=== PATIENT | male | born 1950 | race Caucasian/White ===

== ENCOUNTER → 2017-06-18 | Outpatient (CLI) | payer BC ==
[~2017-06-18] MED LIST: ACYC-57 PO; AMLO-114 PO; ASPEC81 PO; ATOR-26 PO; HYDR-5688 PO; HYG25 PO; MCRK20 PO; METO50TA16 PO; MORP15TA19 PO; TERA1CAP63 PO
--- NOTE | 2017-06-18 12:14 | DIAGNOSTIC IMAGING REPORT ---
L-SPINE MIN 4 VIEWS ROUTINE, SI JOINTS 3 OR MORE VIEWS HISTORY: 67 years-old Male LUMBER SPINE STENOSIS,SACROILITIS,ARTHRITIS, LAB 1 chronic low back and sacral pain COMPARISON: CT abdomen and pelvis 03/11/2016 TECHNIQUE: 5 views of the lumbar spine with 3 views of the SI joints FINDINGS: LUMBAR SPINE: 5 nonrib-bearing lumbar type vertebral segments. Severe multilevel intervertebral disc space narrowing is redemonstrated, most pronounced at 2-L3 and L5-S1. Severe facet arthrosis at L4-L5 and L5-S1. Moderate multilevel endplate spurring. Large anterior bridging osteophyte redemonstrated at T10-T11. 4 mm retrolisthesis L2 on L3 is unchanged, likely secondary to long-standing facet disease. Atherosclerosis of the aorta. SI JOINTS: There are mild degenerative changes about the bilateral SI joints without evidence of acute fracture. No erosive changes to suggest erosive sacroiliitis. Phleboliths noted within the right hemipelvis. Moderate degenerative changes about the bilateral femoral acetabular joints. IMPRESSION: 1. No acute fracture or subluxation. 2. Multilevel degenerative changes as detailed above without significant change from comparison. The above report was generated using voice recognition software. It may contain grammatical, syntax or spelling errors. Electronically signed by: Bull Sepulveda M.D. 06/18/2017 12:13 PM Dictated Date/Time: 06/18/2017 12:08 PM
[2017-06-18 12:22] LABS: BASO % 0.5 %; BASO ABS # 0.04 K/uL (0-0.2); EOS % 1.8 %; EOS ABS # 0.14 K/uL (0-0.5); HEMATOCRIT 50.5 % (42-52); HEMOGLOBIN 18.1 g/dL (14.0-18.0); IG# 0.07 K/uL (0.00-0.02); LYMPH % 33.9 %; MEAN CELL VOLUME 91.2 fL (80-100); MEAN CORPUSCULAR HEMOGLOBIN 32.7 pg (25-34); MEAN CORPUSCULAR HGB CONC 35.8 g/dl (32-36); MEAN PLATELET VOLUME 9.6 fL (7.4-10.4); MONO ABS # 0.84 K/uL (0.11-0.59); NEUT % 51.9 %; NEUT ABS # 3.97 K/uL (1.4-6.5); PLATELET COUNT 229 K/uL (130-400); RED CELL DISTRIBUTION WIDTH CV 13.6 % (11.5-14.5); RED CELL DISTRIBUTION WIDTH SD 45.2 fL (36.4-46.3); WHITE BLOOD COUNT 7.66 K/uL (4.8-10.8)
[2017-06-18 12:28] LABS: ALT/SGPT 49 U/L (12-78); AST/SGOT 32 U/L (15-37); BLOOD UREA NITROGEN 21 mg/dl (7-18); CALCIUM 9.3 mg/dl (8.5-10.1); CARBON DIOXIDE 31 mmol/L (21-32); CREATININE 1.12 mg/dl (0.60-1.40); GLUCOSE 105 mg/dl (70-99); POTASSIUM 3.1 mmol/L (3.5-5.1); SODIUM 136 mmol/L (136-145)
== END | disposition home or self-care (01) ==
LOC: C.RAD 11:13
DX: M48.061 Spinal stenosis, lumbar region without neurogenic claudication (principal); M46.1 Sacroiliitis, not elsewhere classified; M19.90 Unspecified osteoarthritis, unspecified site; M54.5 Low back pain; M47.816 Spondylosis without myelopathy or radiculopathy, lumbar region

== ENCOUNTER → 2017-07-02 | Outpatient (CLI) | payer BC ==
[2017-07-02 13:23] LABS: HEMATOCRIT 48.6 % (42-52); MEAN CELL VOLUME 93.6 fL (80-100); MEAN CORPUSCULAR HEMOGLOBIN 32.8 pg (25-34); MEAN PLATELET VOLUME 9.7 fL (7.4-10.4); PLATELET COUNT 236 K/uL (130-400); RED CELL DISTRIBUTION WIDTH CV 14.3 % (11.5-14.5); RED CELL DISTRIBUTION WIDTH SD 48.6 fL (36.4-46.3); WHITE BLOOD COUNT 7.51 K/uL (4.8-10.8)
== END | disposition home or self-care (01) ==
LOC: C.LAB 12:44
DX: R79.89 Other specified abnormal findings of blood chemistry (principal)

== ENCOUNTER → 2017-07-18 | Outpatient (CLI) | payer BC ==
[~2017-07-18] MED LIST changes: +CHOL20007 PO; +DOCU-94 PO; +HYDR-3983 PO; +HYDR200T5 PO; +IBUP-1428 PO; +PREG1CAP28 PO
--- NOTE | 2017-07-18 17:34 | DIAGNOSTIC IMAGING REPORT ---
BONE SCAN WHOLE BODY CLINICAL HISTORY: 67 years-old Male presenting with MIKE LESION RT ILIAC Bone, abn MRI, SI JOINT PAIN. TECHNIQUE: Planar anterior and posterior imaging of the whole body was performed 3 hours following the intravenous administration of 26.3 mCi Tc-99m MDP. COMPARISON: Plain radiographs of the sacroiliac joints from 06/18/2017. FINDINGS: Focal radiotracer activity evident at the knees, likely localizing to the patellae. Photopenia in the region of the knees suggest bilateral total knee arthroplasty. Focal radiotracer uptake also evident at the left ankle, most consistent with degenerative change. Degenerative related radiotracer activity also evident bilaterally in the midfoot. Mild scoliotic curvature of the thoracic spine with multilevel mild rotatory tracer avidity in the spine likely related to degenerative change. No additional sites of radiotracer uptake. Specifically, no activity is evident in the right iliac bone. Expected radiotracer uptake in the genitourinary system. IMPRESSION: 1. No lesion evident in the right ilium. 2. Multifocal degenerative related radiotracer uptake in the spine, left ankle, and mid feet. 3. Post surgical changes of bilateral total knee arthroplasties. Focal radiotracer uptake at the knees likely localizes to the patellae and may represent expected postsurgical changes of patellar resurfacing. Electronically signed by: Alexys Medina M.D. 07/18/2017 5:32 PM Dictated Date/Time: 07/18/2017 5:29 PM
== END | disposition home or self-care (01) ==
LOC: C.NUCL 13:04
DX: M54.5 Low back pain (principal)

== ENCOUNTER 2019-05-01 06:55 | Inpatient (IN) ==
--- NOTE | 2019-03-16 13:38 | PAT Medication Instructions ---
Medication Instructions Date of Service March 16, 2019 Home Medications Multi Vitamin 1 tab PO QAM acyclovir 200 mg PO BID amlodipine 10 mg PO QAM aspirin 81 mg PO QAM atorvastatin 80 mg PO QPM calcium polycarbophil [Fiber Laxative (ca polycarbo)] 1,250 mg PO BID hydrocodone-acetaminophen 2 tab PO QAM ibuprofen 800 mg PO BID PRN metoprolol tartrate 50 mg PO BID morphine 15 mg PO QAM potassium chloride 10 meq PO BID terazosin 10 mg PO HS Cyanobalamin 1 tab PO QAM Testosterone 1 ml INJ UD cholecalciferol (vitamin D3) [Vitamin D3] 2,000 unit PO HS docusate sodium [Stool Softener] 100 mg PO BID folic acid 1 mg PO QAM glucos sul [id number] [Glucosamine Chondroitin] 1 cap PO BID losartan 50 mg PO QAM menthol [Biofreeze (menthol)] 1 applic TOPICAL QID methotrexate sodium 6 mg PO WK sennosides [Senokot] 8.6 mg PO BID Continue as directed Testosterone 1 ml INJ UD ASK your surgeon for instructions ibuprofen 800 mg PO BID PRN ASK your prescriber and surgeon aspirin 81 mg PO QAM methotrexate sodium 6 mg PO WK STOP taking 2 weeks before surgery glucos sul [id number] [Glucosamine Chondroitin] 1 cap PO BID STOP taking 24 hours before surgery menthol [Biofreeze (menthol)] 1 applic TOPICAL QID DO NOT take the morning of surgery Multi Vitamin 1 tab PO QAM calcium polycarbophil [Fiber Laxative (ca polycarbo)] 1,250 mg PO BID potassium chloride 10 meq PO BID Cyanobalamin 1 tab PO QAM docusate sodium [Stool Softener] 100 mg PO BID folic acid 1 mg PO QAM losartan 50 mg PO QAM sennosides [Senokot] 8.6 mg PO BID Take morning of surgery With a small sip of water, OTHERWISE NOTHING TO EAT OR DRINK AFTER MIDNIGHT: acyclovir 200 mg PO BID amlodipine 10 mg PO QAM hydrocodone-acetaminophen 2 tab PO QAM (if needed, may be taken up to four hours before surgery) metoprolol tartrate 50 mg PO BID morphine 15 mg PO QAM (if needed, may be taken up to four hours before surgery) Take evening before surgery acyclovir 200 mg PO BID atorvastatin 80 mg PO QPM calcium polycarbophil [Fiber Laxative (ca polycarbo)] 1,250 mg PO BID metoprolol tartrate 50 mg PO BID potassium chloride 10 meq PO BID terazosin 10 mg PO HS cholecalciferol (vitamin D3) [Vitamin D3] 2,000 unit PO HS docusate sodium [Stool Softener] 100 mg PO BID sennosides [Senokot] 8.6 mg PO BID Other Notes If you have any questions please call us at [phone] or [phone] or [phone] or [phone]
--- NOTE | 2019-03-17 11:04 | Anesthesiology Consultation ---
Date of Service March 17, 2019 Assessment & Plan (1) Encounter for pre-operative examination: Chart Review Chart Review: Acceptable Risk for Surgery (pending surgeon ordered PCP clearance) and Patient seen in Pre Admission Testing Teaching & Discussion Instructed NPO after midnight before surgery, except medications with 15 cc of water. Medication instructions provided according to the PAT guidelines. History Surgery Operation Date: 05/01/19 10:20 Proposed Procedures p Left Total Ankle Replacement, Subtalar Fusion, - Quinton Peters DO s Percutaneous Tendon Achilles Lenghting, Application of Platelet Rich Plasma - Quinton Peters DO Height/Weight Height: 5 ft 11 in Weight: 103.4 kg Allergies Allergy/AdvReac Type Severity Reaction Status Date / Time doxycycline Allergy Unknown Rash Verified 03/10/19 14:11 lisinopril AdvReac Unknown dry cough Verified 03/10/19 14:11 Medications Home Medications Medication Instructions Recorded Confirmed Last Taken Multi Vitamin 1 tab PO QAM 01/30/18 03/10/19 02/23/18 07:00 acyclovir 200 mg PO BID 01/30/18 03/10/19 02/23/18 07:00 amlodipine 10 mg PO QAM 01/30/18 03/10/19 02/23/18 07:00 aspirin 81 mg PO QAM 01/30/18 03/10/19 Unknown atorvastatin 80 mg PO QPM 01/30/18 03/10/19 02/23/18 07:00 calcium polycarbophil [Fiber 1,250 mg PO BID 01/30/18 03/10/19 02/23/18 07:00 Laxative (ca polycarbo)] hydrocodone-acetaminophen 2 tab PO QAM 01/30/18 03/10/19 02/23/18 23:55 ibuprofen 800 mg PO BID PRN 01/30/18 03/10/19 02/23/18 23:55 metoprolol tartrate 50 mg PO BID 01/30/18 03/10/19 02/23/18 07:00 morphine 15 mg PO QAM 01/30/18 03/10/19 02/21/18 07:00 potassium chloride 10 meq PO BID 01/30/18 03/10/19 02/23/18 07:00 terazosin 10 mg PO HS 11/01/18 12/10/19 11/25/18 07:00 Cyanobalamin 1 tab PO QAM 03/10/19 03/10/19 Unknown Testosterone 1 ml INJ UD 03/10/19 03/10/19 Unknown cholecalciferol (vitamin D3) 2,000 unit PO HS 03/10/19 03/10/19 Unknown [Vitamin D3] docusate sodium [Stool Softener] 100 mg PO BID 03/10/19 03/10/19 Unknown folic acid 1 mg PO QAM 03/10/19 03/10/19 Unknown glucos sul [id number] 1 cap PO BID 03/10/19 03/10/19 Unknown [Glucosamine Chondroitin] losartan 50 mg PO QAM 03/10/19 03/10/19 Unknown menthol [Biofreeze (menthol)] 1 applic TOPICAL QID 03/10/19 03/10/19 Unknown methotrexate sodium 6 mg PO WK 03/10/19 03/10/19 Unknown sennosides [Senokot] 8.6 mg PO BID 03/10/19 03/10/19 Unknown Past Medical History Medical History (Updated 03/17/19 @ 14:07 by Solitario Dumont) BPH (benign prostatic hyperplasia) Chronic back pain Diverticulitis 11/2017. S/P SIGMOIDECTOMY. 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 BE[employer] INJURY (MOST RECENT 2014) History of total knee replacement B/L Hx of carpal tunnel repair R/L Hx of tooth extraction S/P laparoscopic-assisted sigmoidectomy FOR DIVERTICULITIS Past Anesthesia History No Hx of Anesthesia Complications and No Family Hx of Anesthesia Complications History of PONV No Hx of PONV and No Hx of Motion Sickness Social History Smoking Status: Never smoker Do You Dip or Chew Tobacco: No Hx Alcohol Use: Yes Alcohol type: beer alcohol intake frequency: a few times a month Hx Substance Use: No Review of Systems Pt denies any recent chest pain, shortness of breath, palpitations, cough, fever or URI. Physical Exam Vital Signs BP: 138/88 P: 74bpm SPO2: 95% RA T: 97.8 F R: 16 ENMT Mouth: + dentures (upper partial) and + dental restorations (few crowns); no chipped teeth and no loose teeth Thyromental Distance: < 3.5 Finger Breadths (3) Mallampati Class: II Neck + short neck and + facial hair (long bushy mustache, pt advised to trim prior to surgery); neck extension not limited Respiratory normal respiratory effort Auscultation: lungs clear to auscultation bilaterally Cardiovascular Rate/Rhythm: regular rate and regular rhythm Heart Sounds: no murmur Vessels: no carotid bruit Extremities: no edema Testing Laboratory Results 03/17/19 10:53 03/17/19 10:53 PT 10.9 Seconds (9.0-12.0) 03/17/19 10:53 INR 1.1 (0.9-1.1) 03/17/19 10:53 APTT 27.6 Seconds (21.0-31.0) 03/17/19 10:53 Hemoglobin A1c 5.7 % (4.5-5.6) H 03/17/19 10:53 Urine Color Dark Yellow 03/17/19 Unknown Urine Appearance Clear (Clear) 03/17/19 Unknown Urine pH 6.0 (4.5-7.5) 03/17/19 Unknown Ur Specific [place] 1.037 (1.000-1.030) H 03/17/19 Unknown Urine Protein Negative (Negative) 03/17/19 Unknown Urine Glucose (UA) Negative (Negative) 03/17/19 Unknown Urine Ketones Negative (Negative) 03/17/19 Unknown Urine Nitrite Negative (Negative) 03/17/19 Unknown Ur Leukocyte Esterase Negative (Negative) 03/17/19 Unknown Blood Type O Positive 03/17/19 10:53 Antibody Screen NEGATIVE 03/17/19 10:53 Electrocardiogram Date: 03/17/19 Findings: + NSR @ (65bpm) Chest X-Ray Date: 03/17/19 Findings: + NAD Cervical Spine Date: 02/05/18 IMPRESSION: 1. No acute fracture or subluxation. 2. Chronic 2 mm anterolisthesis C4 on C5 is unchanged less on neutral, flexion and extension views. No evidence of instability.
[2019-03-17 11:35] LABS: Basophils # (auto) 0.01 K/uL (0-0.2); Basophils % (auto) 0.2 %; Eosinophils # (auto) 0.05 K/uL (0-0.5); Eosinophils % (auto) 0.8 %; Hematocrit (blood only) 49.1 % (42-52); Hemoglobin 16.8 g/dL (14.0-18.0); Immature Granulocytes # (auto) 0.01 K/uL (0.00-0.02); Immature Granulocytes % (auto) 0.2 %; Lymphocytes # (auto) 1.54 K/uL (1.2-3.4); Lymphocytes % (auto) 24.3 %; Mean Corpuscular Hemoglobin 33.8 pg (25-34); Mean Corpuscular Hgb Conc 34.2 g/dL (32-36); Mean Corpuscular Volume 98.8 fL (80-100); Mean Platelet Volume 9.8 fL (7.4-10.4); Monocytes # (auto) 0.75 K/uL (0.11-0.59); Monocytes % (auto) 11.8 %; Neutrophils # (auto) 3.98 K/uL (1.4-6.5); Neutrophils % (auto) 62.7 %; Platelet Count 230 K/uL (130-400); RDW Coefficient of Variation 14.1 % (11.5-14.5); RDW Standard Deviation 50.7 fL (36.4-46.3); Red Blood Count 4.97 M/uL (4.7-6.1); White Blood Count 6.34 K/uL (4.8-10.8)
--- NOTE | 2019-03-17 11:42 | XRay Report ---
XR chest Pre-admission PA/Lat CLINICAL HISTORY: 69 years-old Male presenting with preoperative evaluation. TECHNIQUE: PA and lateral views of the chest were obtained. COMPARISON: 01/16/2010. FINDINGS: Cardiomediastinal silhouette normal. Lungs and pleural spaces clear. Degenerative changes of the thor acic spine. Degenerative changes with possible loose bodies in the left glenohumeral joint. Upper abd omen normal. IMPRESSION: 1. No acute cardiopulmonary disease. Electronically signed by: Alexys Medina M.D. 03/17/2019 11:41 AM
[2019-03-17 11:43] LABS: Albumin Level 3.7 gm/dl (3.4-5.0); BUN Creatinine Ratio 19.8 (10-20); Calcium 8.9 mg/dl (8.5-10.1); Creatinine Clr Calc Pharmacy 69.6 ml/min; Est GFR (Non-African American) 58.6; Potassium 4.4 mmol/L (3.5-5.1)
[2019-03-17 11:49] LABS: INR 1.1 (0.9-1.1); Partial Thromboplastin Time 27.6 Seconds (21.0-31.0); Prothrombin Time 10.9 Seconds (9.0-12.0)
[2019-03-17 11:51] LABS: Appearance Urine Clear (Clear); Bilirubin Urine Negative (Negative); Blood Urine Negative (Negative); Color Urine Dark Yellow; Glucose Urine UA Negative (Negative); Ketones Urine Negative (Negative); Leukocyte Esterase Urine Negative (Negative); Nitrite Urine Negative (Negative); Protein Urine Negative (Negative); Specific Gravity Urine 1.037 (1.000-1.030); Urobilinogen Urine Negative (Negative)
[2019-03-17 12:25] LABS: Estimated Average Glucose 117 mg/dl; Hemoglobin A1C 5.7 % (4.5-5.6)
--- NOTE | 2019-04-29 14:40 | History & Physical Report ---
Date of Service April 29, 2019 Assessment & Plan (1) Osteoarthritis of ankle, left: Schedule a Left STAR Total Ankle Replacement, Subtalar Fusion, Percutaneous Tendon Achilles Lengthening, Application of Platelet Rich Plasma for 05.01.2019. All potential risks, benefits, complications, alternatives, and rehab have been discussed with the patient and he wishes to proceed. Plan for ASA 81 mg BID x 4 wks for DVT prophylaxis. (2) Osteoarthritis of left subtalar joint: (3) Achilles tendon contracture, left: (4) Rheumatoid arthritis: History of Present Illness Chief Complaint: left ankle/hindfoot pain Primary Care Provider: Napoleon Carballo Jr, DO This is a patient with rheumatoid arthritis who was treated conservatively for ankle and subtalar joint DJD. However, he has failed all conservative management and is now being set up for surgical treatment. Allergies Allergy/AdvReac Type Severity Reaction Status Date / Time doxycycline Allergy Unknown Rash Verified 03/10/19 14:11 lisinopril AdvReac Unknown dry cough Verified 03/10/19 14:11 Home Medications Home Medications Medication Instructions Recorded Confirmed Type Multi Vitamin 1 tab PO QAM 01/30/18 03/10/19 History acyclovir 200 mg PO BID 01/30/18 03/10/19 History amlodipine 10 mg PO QAM 01/30/18 03/10/19 History aspirin 81 mg PO QAM 01/30/18 03/10/19 History atorvastatin 80 mg PO QPM 01/30/18 03/10/19 History calcium polycarbophil [Fiber 1,250 mg PO BID 01/30/18 03/10/19 History Laxative (ca polycarbo)] hydrocodone-acetaminophen 2 tab PO QAM 01/30/18 03/10/19 History ibuprofen 800 mg PO BID PRN 01/30/18 03/10/19 History metoprolol tartrate 50 mg PO BID 01/30/18 03/10/19 History morphine 15 mg PO QAM 01/30/18 03/10/19 History potassium chloride 10 meq PO BID 01/30/18 03/10/19 History terazosin 10 mg PO HS 01/30/18 03/10/19 History Cyanobalamin 1 tab PO QAM 03/10/19 03/10/19 History Testosterone 1 ml INJ UD 03/10/19 03/10/19 History cholecalciferol (vitamin D3) 2,000 unit PO HS 03/10/19 03/10/19 History [Vitamin D3] docusate sodium [Stool Softener] 100 mg PO BID 03/10/19 03/10/19 History folic acid 1 mg PO QAM 03/10/19 03/10/19 History glucos sul [id number] 1 cap PO BID 03/10/19 03/10/19 History [Glucosamine Chondroitin] losartan 50 mg PO QAM 03/10/19 03/10/19 History menthol [Biofreeze (menthol)] 1 applic TOPICAL QID 03/10/19 03/10/19 History methotrexate sodium 6 mg PO WK 03/10/19 03/10/19 History sennosides [Senokot] 8.6 mg PO BID 03/10/19 03/10/19 History Past Med/Surg History Medical History BPH (benign prostatic hyperplasia) Chronic back pain Diverticulitis 11/2017. S/P SIGMOIDECTOMY. 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 (MOST RECENT 2014) History of total knee replacement B/L Hx of carpal tunnel repair R/L Hx of tooth extraction S/P laparoscopic-assisted sigmoidectomy FOR DIVERTICULITIS Family History Father Lung cancer Mother Cervical cancer Family history of diabetes mellitus Other No pertinent family history Social History Preferred Language: Thai Communication Ability: Effective Hearing Ability: Hard of Hearing Ceramist Required: No Beliefs That Will Affect Care: None marital status: Single Current Living Situation: Significant Other Other Information That Helps Us Care for You: No Feels Safe at Home: Yes Safety Concerns: Feels Safe At This Time Smoking Status: Never smoker Do You Dip or Chew Tobacco: No ; Second Hand Exposure: Yes (WELDING SMOKE) ; Hx Alcohol Use: Yes Alcohol type: beer Hx Substance Use: No Physical Exam Constitutional: well developed and well nourished; no acute distress ENMT: external ear and nose normal, oropharynx normal Neck: trachea midline, no thyromegaly Respiratory: normal respiratory effort, lungs clear to auscultation Cardiovascular: Rate/Rhythm: regular rate and regular rhythm Gastrointestinal (Abdomen): normal bowel sounds, soft, nontender, no hepatosplenomegaly Musculoskeletal: Gait: + antalgic gait (left) Ankle: + deformity (left ankle valgus deformity), + effusion (left ankle and subtalar joints), + limited ROM of ankle (left ankle) and + joint line tenderness (ankle) (left anterior ankle and sinus tarsi); no skin erythema and no ecchymosis Skin: no rashes, warm and dry Neurologic: normal touch/pain/proprioception Psychiatric: A+Ox3, euthymic affect Lymphatic: no cervical or axillary lymphadenopathy
[~2019-05-01 06:55] MED LIST changes: +ACETAMINOPHEN 500 MG TAB PO SCH; -ACYC-57 PO; -AMLO-114 PO; -ASPEC81 PO; -ATOR-26 PO; +CEFAZOLIN 2000MG 2,000 MG/15 ML SYR IV SCH; -CHOL20007 PO; +CeleBREX 200 MG CAP PO SCH; -DOCU-94 PO; +FAMOTIDINE 20 MG TAB PO SCH; +GABAPENTIN 300 MG CAP PO SCH; -HYDR-3983 PO; -HYDR-5688 PO; -HYDR200T5 PO; -HYG25 PO; -IBUP-1428 PO; +LR 15ML/HR IV SCH; -MCRK20 PO; -METO50TA16 PO; +METOCLOPRAMIDE HCL 10 MG TABLET PO SCH; -MORP15TA19 PO; -PREG1CAP28 PO; +ROPIVACAINE 0.5% 5 MG/ML 30 ML VIAL ONE; +ROPIVACAINE 0.5% HCL/PF 150 MG, BUPIVACAINE 0.5% MPF 30 ML, EPINEPHrine 30MG/30ML (OR U... INSTIL SCH; -TERA1CAP63 PO; +dexAMETHasone 4 MG TAB PO SCH
--- NOTE | 2019-05-01 07:33 | History & Physical Bridge Note ---
Date of Service May 01, 2019 History & Physical Bridge Note I have examined the patient, reviewed the History & Physical and in the interval since the performance of the History & Physical I have noted the following changes of clinical significance: no changes noted
[2019-05-01] MEDS ORDERED: MIDAZOLAM HCL 1 MG/ML 2ML VIAL ONE ×2 (08:23)
[2019-05-01] MEDS ORDERED: fentaNYL citrate 100 MCG/2 ML VIAL ONE ×2 (08:23→10:45)
[2019-05-01] MEDS ORDERED: fentaNYL citrate 100 MCG/2 ML VIAL IV PRN (08:41)
[2019-05-01] MEDS ORDERED: ONDANSETRON INJ 2 MG/ML 2 ML VIAL IV PRN ×2 (08:41→14:59)
[2019-05-01] MEDS ORDERED: ePHEDrine sulfate 50 MG/ML AMP IV PRN (08:41)
[2019-05-01] MEDS ORDERED: ATROPINE SULFATE 0.1 MG/ML 10ML SYR IV PRN (08:41)
[2019-05-01] MEDS ORDERED: BACITRACIN INJ 50,000 UNIT VIAL ONE (10:09)
[2019-05-01] MEDS ORDERED: THROMBIN 5000 UNITS KIT ONE (10:46)
[2019-05-01] MEDS ORDERED: CALCIUM CHLORIDE 10% 10 ML SYR IV ONE (10:46)
[2019-05-01] MEDS ORDERED: ORTHO JOINT ANESTHETIC ONE (10:49)
[2019-05-01] MEDS ORDERED: VASOPRESSIN 20 UNIT/ML VIAL ONE (11:41)
[2019-05-01] MEDS ORDERED: PROPOFOL IV EMULSION 10 MG/ML 20 ML VIAL IV ONE (12:09)
[2019-05-01] MEDS ORDERED: GLYCOPYRROLATE 0.2 MG/ML VIAL ONE (12:09)
[2019-05-01] MEDS ORDERED: ONDANSETRON INJ 2 MG/ML 2 ML VIAL ONE (12:09)
[2019-05-01] MEDS ORDERED: ROCURONIUM BROMIDE 10 MG/ML 5 ML VIAL ONE (12:09)
[2019-05-01] MEDS ORDERED: NEOSTIGMINE METHYLSULFATE 5 MG/5 ML SYR ONE (12:09)
[2019-05-01] MEDS ORDERED: LIDOCAINE HCL 2% 2 ML VIAL/AMP(20MG/ML) INFIL ONE (12:09)
--- NOTE | 2019-05-01 13:40 | Post Operative Brief Note ---
Immediate Post Op Note v1 Date of Surgery May 01, 2019 Pre & Post Diagnosis Operation Date: 05/01/19 09:00 Pre-Op Diagnosis: (1) Osteoarthritis of ankle, left: (2) Osteoarthritis of left subtalar joint: (3) Achilles tendon contracture, left: (4) Rheumatoid arthritis: Post-Op Diagnosis: (1) Osteoarthritis of ankle, left: (2) Osteoarthritis of left subtalar joint: (3) Achilles tendon contracture, left: (4) Rheumatoid arthritis: (5) Exostoses of the talonavicular joint I identified the patient and participated in the time-out.: Yes Procedure Operation Date: 05/01/19 09:00 Actual Procedures p Left STAR Total Ankle Replacement, Cheilectomy Talonavicular Joint(Left) - Quinton Peters DO s Percutaneous Tendon Achilles Lengthening, Application of Platelet Rich Plasma concentrate(Left) - Quinton Peters DO Surgeon Quinton Peters DO Director [facility] Lisandro Mc PA-C Estimated Blood Loss 2 Findings Consistent with Post-Op Diagnosis Specimens None Drains Hemovac Drain Anesthesia Type General Regional Complications none Disposition Accompanied Patient To Recovery: No Disposition: Recovery Room
--- NOTE | 2019-05-01 13:40 | Fluoroscopy Report ---
FL ankle LT min 3V RTN CLINICAL HISTORY: LEFT TOTAL ANKLE REPLACEMENT COMPARISON STUDY: CT scan dated 12/04/2018 FLUOROSCOPY TIME: 116 seconds. NUMBER OF FLUOROSCOPIC IMAGES: 2 FINDINGS: There are postsurgical changes of a total left ankle arthroplasty. There is no dislocation. There are multiple lucencies within the distal tibia suggestive of prior screw/pin tracks. IMPRESSION: Intraoperative fluoroscopic spot images demonstrating a total left ankle arthroplasty ACT 112: Negative or not required by law. Electronically signed by: Germain Bond M.D. 05/01/2019 1:39 PM
--- NOTE | 2019-05-01 14:16 | Operative Report ---
DATE OF OPERATION: 05/01/2019 PREOPERATIVE DIAGNOSES: 1. Left ankle degenerative joint disease. 2. Rheumatoid arthritis. 3. Osteoarthritis. 4. Achilles contracture. POSTOPERATIVE DIAGNOSES: 1. Left ankle degenerative joint disease. 2. Rheumatoid arthritis. 3. Osteoarthritis. 4. Achilles contracture. 5. Exostoses of the talonavicular joint. PROCEDURES: 1. Left STAR total ankle replacement using a size medium talus component, size large tibial component and a 10 mm polyethylene. 2. Percutaneous tendon Achilles lengthening. 3. Cheilectomy of the talonavicular joint. 4. Application of platelet rich plasma concentrate. SURGEON: Quinton Petres DO ENVIRONMENTAL EMERGENCIES ASSISTANT: Lisandro Mc PA-C who was present for patient positioning, sterile prep and drape, management of retractors and instruments. He was present through the critical portions of the case including wound closure, application of sterile dressing and transport of the patient to recovery. ANESTHESIA: General regional with popliteal block and intra-articular local. SPECIMENS: None. DRAINS: Hemovac x1. COMPLICATIONS: None. BLOOD LOSS: 2 mL. PERTINENT HISTORY: This is a 69-year-old gentleman with chronic progressive and worsening pain, swelling and deformity of his left ankle for the last 4-5 years. He attempted and failed conservative management including shoewear modification, activity modification, use of a brace, use of an assistive device, physician directed home exercise, steroid injections, anti-inflammatories, physical therapy, and modification of work activities. Radiographs and CT scan demonstrate severe degenerative arthritis with valgus deformity of the tibiotalar joint with marginal osteophytes, subchondral sclerosis and subchondral cysts with complete loss of joint space laterally. The patient was scheduled for surgery as indicated. PROCEDURE: The patient was taken to the operative suite after popliteal block was administered. The patient was placed supine on the operating room table. Tourniquet was applied over the left lower extremity. After the patient was anesthetized, LMA was placed. The left lower extremity was then sterilely prepped and draped in the usual sterile fashion [id number], elevated and exsanguinated with an Esmarch bandage, and tourniquet inflated to 350 mmHg. Next, a 15-blade scalpel incision made in the midline of the left ankle taking care to identify the tibialis anterior. The incision was made lateral to the tibialis anterior and centered over the extensor hallucis longus tendon. The incision was deepened through subcutaneous tissue. Meticulous hemostasis was achieved with electrocautery. Full-thickness skin flaps were developed. Superficial peroneal nerve was identified, retracted, and protected. Next, the extensor retinaculum was incised along the skin incision to the lateral aspect of the tibialis anterior. Tibialis anterior was retracted medially. The extensor hallucis longus and the neurovascular bundle beneath were retracted laterally. The small crossing vessels were cauterized. The anterior capsule was then incised in its midline and then elevated medially and laterally with electrocautery. Appropriate soft tissue retractors were placed carefully to maintain essentially zero skin tension on the superficial skin. After the capsule was elevated and retracted medially and laterally to visualize the medial and lateral malleoli clearly, rongeur was used to perform synovectomy and remove any excess debris and loose bodies. There were large exostosis of both the talus and the navicular at the talonavicular joint. An osteotome and mallet were used to resect these exostoses in the dorsum of the talonavicular joint. These were removed with a rongeur. Next, the wound was irrigated and suctioned. Good visualization was obtained. At this point the anterior lip of hypertrophic bone was resected from the tibia with an osteotome and mallet followed by resection of a small osteophyte medially at the medial malleolus. Next, the tibial plafond could be clearly visualized. The neck of the talus was then rongeured down to the true neck of the talus after all hypertrophic osteophytes were excised. Next, attention was directed toward the proximal tibia at which point a 15-blade scalpel incision was made anterior of the tibial tubercle the inferior aspect using the external alignment guide as a guide for pin placement which was essentially in the midline of the tibia with a slight degree of plantar flexion. Guide was placed anteriorly using a small osteotome in the medial gutter of the ankle joint to riveter helper in alignment. Next, the small 2.4 mm pin was placed adjacent to the tibial tubercle and the alignment guide was placed approximately one fingerbreadth above the soft tissue and fastened there at approximately four notches medialized proximally. Next, the T-handle guide was placed anteriorly and then this was aligned with the small osteotome and placed in the medial gutter of the ankle joint to make this parallel and then also the orientation of the second ray of the foot was used to guide as well. Next, the more proximal alignment block was pinned unicortically followed by placement of the lateral alignment guide on the tibial alignment jig and the T-handle was removed. Distal cutting block was then fastened to the distal aspect of the tibial alignment guide and then x-rays obtained in AP and lateral projections of the ankle and tibia assuring appropriate alignment of the tibial alignment guide and the tibial cutting block. After appropriate alignment was established, the distal cutting block was then pinned in place with two 2.4 mm pins, one in the proximal and then secondarily in the distal aspect of the tibial cutting guide and the tibial cutting guide was aligned at the inferior aspect at the level of the tibial plafond. Next, after the tibial cutting blocks were aligned and confirmed, the medial and lateral saw capture pins were placed followed by resection of the distal tibia with a sagittal saw. The pins were removed and the distal cutting guide was then removed followed by removal of the distal tibial cut fragment after it was morselized with a small osteotome and resected with a rongeur. A cervical lamina corn cutter operator was placed in the ankle joint to open the ankle joint followed by resection of the posterior fragments from the distal tibia cut. Next, the talar cutting guide paddle was placed at the distal tibial cutting guide and fastened in place. The ankle was held in neutral dorsiflexion. Four pins were placed in the talar cutting block fixing the talus in appropriate alignment. Next, after the saw capture pins were placed, the sagittal saw was used to resect the superior aspect of the talus. The talar cutting block guide was then removed as well as the pins and talus. This was then followed by placement of datum guide which was initially placed as an extra small position with regard to position on the talus as well as orientation along the second ray. Central pin was placed and then the posterior capture cutting guide was attached and the anterior milling guide was also fastened with two football screws. Next, the anterior mill was used to resect the anterior aspect of the talar dome. Posterior cut was made. This jig was then removed followed by placement of the shoulder cutting guide and the reciprocating saw was just resect the shoulder portions of the talus using the laser cut line. This guide was then removed leaving the central pin followed by resection of the fragments using a small osteotome and mallet. This was then elevated and resected. Next, the window trial was firmly affixed to the superior aspect of the talus using fluoroscopic confirmation of alignment and position. Next, the central keel was drilled. The window trial was then removed following use of the central keel punch. This was also confirmed using fluoroscopic physical therapy assistant. The wound was copiously irrigated with pulsatile lavage with Bacitracin additive followed by suctioning of the talar component. Platelet-rich plasma was injected at this time at the undersurface of the implant as well as in the talar dome. The final talar component was impacted in place with fluoroscopic assistance. Next, a trial polyethylene 6 mm was placed in the joint and the posterior aspect of the tibia was measured both medially and laterally. Appropriate size tibial drill guide was then placed and fastened with two pins. This was confirmed with x-ray and then the barrel drills x 2 were performed making certain to aim proximally. Next, the barrel cutting jig was then used to perform the final punch medially and laterally. The trial plate was then removed after appropriate sized polyethylene was sized. Next, the joint was copiously irrigated with pulsatile lavage followed by suctioning of all surfaces. The tibia was then injected with platelet-rich plasma as well as the superior aspect of the tibial final plate implant. This was then impacted in place with the trial polyethylene liner in place to ensure adequate positioning. Next, the final impactor was used to seat the tibial base tray flush with the anterior aspect of the tibia followed by bone grafting of the anterior barrel holes with local bone graft. This was impacted in place with a mallet and bone tamp. This then followed by confirmation with C-arm and then final polyethylene was inserted without difficulty. Excellent range of motion and stability was obtained. No liftoff was noted. Ortho mix intra-articular injection was injected in and Around the ankle joint capsule. The platelet-rich plasma was then sprayed within the joint and all surfaces and also into the subcutaneous tissue and deep soft tissue. A 10-Czech single-lumen Hemovac drain was placed anterolaterally followed by closure of the ankle joint capsule with #1 Vicryl. The extensor retinaculum was closed using interrupted 2-0 Vicryl, the dermis closed buried 3-0 Vicryl, and skin was closed using 4-0 Monocryl and Dermabond. A sterile compressive bulky Napoleon Hinkle plaster splint was applied overwrapped with an Lefty wrap. Tourniquet was released. The patient was awakened and taken to recovery in stable condition. I attest to the content of the Intraoperative Record and any orders documented therein. Any exceptions are noted below. ALEJANDRINA
--- NOTE | 2019-05-01 14:27 | Anesthesiology Progress Note ---
Date of Service May 01, 2019 Anesthesia Post Procedure Vital Signs Vital Signs: Temp Pulse Pulse Resp BP Pulse Ox 05/01/19 14:20 77 17 108/64 95 05/01/19 14:10 68 16 107/57 L 98 05/01/19 14:00 97.2 F L 75 16 107/57 L 96 05/01/19 07:55 98.4 F 70 16 122/83 93 Pain Intensity Left Foot: Pain Intensity: 6 Transfer of Care Handoff Completed per policy Notes Mental Status: alert / awake / arousable and participated in evaluation Patient Amnestic to Procedure: Yes Nausea / Vomiting: adequately controlled Pain: adequately controlled Airway Patency, RR, SpO2: stable & adequate BP & HR: stable & adequate Hydration State: stable & adequate Anesthetic Complications: no major complications apparent and Pt Satisfied with anesthetic care
[2019-05-01] MEDS ORDERED: HYDROmorphone INJ 0.5 MG/0.5 ML SYR IV PRN (14:59)
[2019-05-01] MEDS ORDERED: METOCLOPRAMIDE HCL INJ 5 MG/ML 2 ML VIAL IV PRN (14:59)
[2019-05-01] MEDS ORDERED: MAGNESIUM HYDROXIDE SUSP 30 ML UDC PO PRN (14:59)
[2019-05-01] MEDS ORDERED: TAMSULOSIN HCL 0.4 MG CAP PO PRN (14:59)
[2019-05-01] MEDS ORDERED: bisacodyL 10 MG SUPP PR PRN (14:59)
[2019-05-01] MEDS ORDERED: NALOXONE HCL 0.4 MG/1 ML VIAL/CARP IV PRN (14:59)
[2019-05-01] MEDS ORDERED: NON-FORMULARY MEDICATION (Menthol [Biofreeze (Menthol)] 1 APPLN) TOP SCH (17:00)
[2019-05-01] MEDS: CEFAZOLIN 2000MG 2,000 MG/15 ML SYR IV SCH (19:04)
--- NOTE | 2019-05-01 19:34 | XRay Report ---
XR ankle LT min 3V routine HISTORY: 69 years-old Male post op left total ankle replacement left ankle arthroplasty COMPARISON: Fluoroscopic images of the left ankle of same day at 11:21 AM TECHNIQUE: 3 radiographic views of the left ankle FINDINGS: Findings bony detail is obscured secondary to overlying casting material. Postoperative changes of le ft tibiotalar arthroplasty. Satisfactory alignment without acute fracture. Radiodensities/debris note d about the posterior joint recess. Moderate midfoot and subtalar osteoarthritis. Marginal spurring o f the calcaneus. Posterior skin toby with surgical drainage catheter, expected postsurgical soft t issue swelling and deep tissue air. IMPRESSION: Expected postoperative findings associated with left tibia tailor total joint arthroplast y. ACT 112: Negative or not required by law. The above report was generated using voice recognition software. It may contain grammatical, syntax o r spelling errors. Electronically signed by: Bull Sepulveda M.D. 05/01/2019 7:33 PM
[2019-05-01] MEDS ORDERED: CHOLECALCIFEROL 1,000 UNITS 25 MCG TAB PO SCH (21:00)
[2019-05-01] MEDS ORDERED: NON-FORMULARY MEDICATION (Glucos Sul 2kcl-Msm-Chond-C-Mn [Glucosamine Chondroitin] 1 CAP) PO SCH (21:00)
[2019-05-01] MEDS ORDERED: NON-FORMULARY MEDICATION (Docusate Sodium [Stool Softener] 100 MG) PO SCH (21:00)
[2019-05-01] MEDS ORDERED: ATORVASTATIN 40 MG TAB PO SCH (21:00)
[2019-05-01] MEDS ORDERED: SENNA 8.6 MG TAB PO SCH ×2 (21:00)
[2019-05-01] MEDS ORDERED: ACYCLOVIR 200 MG CAP PO PRN (21:00)
[2019-05-01] MEDS ORDERED: TERAZOSIN HCL 5 MG CAP PO SCH (21:00)
[2019-05-01] MEDS: DOCUSATE SODIUM 100 MG CAP PO SCH (22:01)
[2019-05-01] MEDS: ACETAMINOPHEN 500 MG TAB PO SCH (22:01)
[2019-05-01] MEDS: METOPROLOL TARTRATE 50 MG TAB PO SCH (22:02)
[2019-05-01] MEDS: POTASSIUM CHLORIDE 10 MEQ TABCR PO SCH (22:04)
[2019-05-01] MEDS: CALCIUM POLYCARBOPHIL 625MG TAB PO SCH (22:05)
[2019-05-01] MEDS: ASPIRIN 81 MG ECTAB PO SCH (22:05)
[2019-05-01] MEDS: SODIUM CHLORIDE 0.9% 1000ML 1,000 ML IV SCH ×3 (22:12→23:53)
[2019-05-02] MEDS: CEFAZOLIN 2000MG 2,000 MG/15 ML SYR IV SCH (02:32)
[2019-05-02] MEDS: OXYCODONE HCL IR 5 MG TAB (IMMEDIATE RELEASE) PO PRN ×3 (02:34→11:37)
[2019-05-02] MEDS: ACETAMINOPHEN 500 MG TAB PO SCH ×2 (05:30→13:44)
[2019-05-02 05:39] LABS: Hematocrit (blood only) 40.1 % (42-52); Hemoglobin 13.6 g/dL (14.0-18.0); Mean Corpuscular Hemoglobin 33.1 pg (25-34); Mean Corpuscular Hgb Conc 33.9 g/dL (32-36); Mean Corpuscular Volume 97.6 fL (80-100); Mean Platelet Volume 9.7 fL (7.4-10.4); Platelet Count 204 K/uL (130-400); RDW Standard Deviation 49.9 fL (36.4-46.3); Red Blood Count 4.11 M/uL (4.7-6.1); White Blood Count 12.94 K/uL (4.8-10.8)
[2019-05-02 06:07] LABS: BUN Creatinine Ratio 20.4 (10-20); Calcium 8.2 mg/dl (8.5-10.1); Creatinine Clr Calc Pharmacy 74.2 ml/min; Est GFR (African American) 72.8; Est GFR (Non-African American) 62.8; Potassium 3.6 mmol/L (3.5-5.1)
[2019-05-02] MEDS: METOPROLOL TARTRATE 50 MG TAB PO SCH (07:37)
[2019-05-02] MEDS: DOCUSATE SODIUM 100 MG CAP PO SCH (07:37)
[2019-05-02] MEDS: CALCIUM POLYCARBOPHIL 625MG TAB PO SCH (07:38)
[2019-05-02] MEDS: ASPIRIN 81 MG ECTAB PO SCH (07:38)
[2019-05-02] MEDS: POTASSIUM CHLORIDE 10 MEQ TABCR PO SCH (07:39)
[2019-05-02] MEDS ORDERED: CYANOCOBALAMIN 500 MCG TABLET (VITAMIN B-12) PO SCH (09:00)
[2019-05-02] MEDS ORDERED: MoRPHine SULFATE CR 15 MG TABCR PO SCH (09:00)
[2019-05-02] MEDS ORDERED: LOSARTAN POTASSIUM 50 MG TAB PO SCH (09:00)
[2019-05-02] MEDS ORDERED: MULTIVITAMIN PO SCH (09:00)
[2019-05-02] MEDS ORDERED: MINERALS PO SCH (09:00)
[2019-05-02] MEDS ORDERED: MULTIVITAMIN TAB PO SCH (09:00)
[2019-05-02] MEDS ORDERED: AMLODIPINE BESYLATE 5 MG TAB PO SCH (09:00)
[2019-05-02] MEDS ORDERED: FOLIC ACID 1 MG TAB PO SCH (09:00)
--- NOTE | 2019-05-02 09:45 | Orthopedic Progress Note ---
Date of Service May 02, 2019 Assessment & Plan (1) Osteoarthritis of ankle, left: plan for DC home today. NWB Continue TEDs and ASA Subjective Patient resting in bed. Post op day #1. Pain controlled. No CP, SOB, dizziness Physical Exam Physical Exam: splint intact. Drain in place. toes mobile. NVI Results & Data ([facility]) Vital Signs (Past 12 Hours) Vital Signs Temp Pulse Resp BP Pulse Ox 05/02/19 07:09 36.5 C 69 16 148/63 H 95 05/02/19 03:55 36.8 C 78 16 117/71 94 05/01/19 23:05 36.7 C 98 H 18 123/72 91
[2019-05-04] MEDS ORDERED: metHOTREXate sodium 2.5 MG TAB PO SCH (09:00)
--- NOTE | 2019-05-08 10:00 | Discharge Summary ---
Date of Service May 08, 2019 Admission HPI Per Admitting Provider This is a patient with rheumatoid arthritis who was treated conservatively for ankle and subtalar joint DJD. However, he has failed all conservative management and is now being set up for surgical treatment. Principal Diagnosis left ankle osteoarthritis Discharge Exam Constitutional well developed and well nourished; no acute distress ENMT external ear and nose normal, oropharynx normal Neck trachea midline, no thyromegaly Respiratory normal respiratory effort, lungs clear to auscultation Cardiovascular Rate/Rhythm: regular rate and regular rhythm Gastrointestinal (Abdomen) normal bowel sounds, soft, nontender, no hepatosplenomegaly Musculoskeletal Ankle: + surgical incision (left ankle: Splint C/D/I) and + surgical drain present (hemovac drained 210 cc--removed prior to d/c); no skin erythema and no ecchymosis Skin no rashes, warm and dry Neurologic normal touch/pain/proprioception Psychiatric A+Ox3, euthymic affect Lymphatic no cervical or axillary lymphadenopathy Discharge Data Allergies Allergy/AdvReac Type Severity Reaction Status Date / Time doxycycline Allergy Unknown Rash Verified 05/01/19 07:44 lisinopril AdvReac Unknown dry cough Verified 05/01/19 07:44 Consultations 05/01/19 14:59 Consult Case Management - Discharge Planning Routine Procedures Performed Operation Date: 05/01/19 09:00 Actual Procedures p Left Total Ankle Replacement, Kylectomy Talonavicular Joint(Left) - Quinton Bahena DO s Percutaneous Tendon Achilles Lengthening, Application of Platelet Rich Plasma(Left) - Quinton Bahena DO Ordered Studies 05/01/19 05:00 US - OR guided needle placemen Routine 05/01/19 09:00 FL ankle LT min 3V RTN Routine FL fluoroscopy <1hr Routine Hospital Course (1) Osteoarthritis of ankle, left: Patient was admitted on 04.21.2019 for a left total ankle arthroplasty. On POD #1, his pain was controlled and he was able to maintain his NWB status on the LLE. He was discharged later on POD #1. plan for DC home today. NWB Continue TEDs and ASA Total Time Total Time Spent Total Time Spent (In Minutes): 30 Total Time Includes: Examination of the Patient, Discharge Planning and Medication Reconciliation Discharge Plan Discharge Items Patient Disposition: Home - Self-Care Reason For Visit: Left Ankle Achilles Contracture, Subfibular Imping Discharge Diagnosis: left ankle osteoarthritis Activity: Per Instructions section Non-emergency contact: Surgeon Call non-emergency contact if: your pain is not controlled, your pain is worsening and your temperature is above 101 Follow-up/Referrals: Napoleon Carballo Jr, [Primary Care Provider] - Diet: Regular Addtl Attending Provider Instructions: ACTIVITY RECOMMENDATIONS: Limitations: No weight bearing to affected limb at all times. SPECIAL CARE INSTRUCTIONS: * Take Aspirin 81 mg every 12 hours for 6 weeks. This has started in the hospital. * Some drainage onto the dressing is normal and is no cause for alarm. * Some swelling is natural especially after walking. * When resting, keep your foot elevated above the level of your heart. * Call [facility] if you notice: -Increased drainage -Fever over 101 degrees F -Severe constant pain BANDAGE: * Leave bandage/cast in place unless otherwise directed. * Keep bandage/cast dry at all times. FOLLOW UP VISIT WITH DR. BAHENA If appointment is not already scheduled: Please call [facility] after you get home today to schedule a follow-up appointment for [address] Bahena at . Pending Studies at Discharge: No Stand-Alone Forms: [facility], Opioid Pain Management, Smoking Cessation Medications and DC Order Prescriptions: New multivitamin [Daily-Ana Laura] Tablet 1 tab PO QAM 30 Days Qty: 30 RF: 0 aspirin [Ecotrin Low Strength] 81 mg Tablet,Delayed Release (Dr/Ec) 81 mg PO BID 30 Days Qty: 60 RF: 0 acetaminophen 500 mg Tablet 1,000 mg PO Q8 PRN (Reason: pain) 30 Days Qty: 180 RF: 0 oxycodone 5 mg Tablet 5 - 10 mg PO Q4H PRN (Reason: pain) Qty: 30 RF: 0 Continued amlodipine 10 mg Tablet 10 mg PO QAM RF: 0 acyclovir 200 mg Capsule 200 mg PO BID RF: 0 atorvastatin 80 mg Tablet 80 mg PO QPM RF: 0 metoprolol tartrate 50 mg Tablet 50 mg PO BID RF: 0 morphine 15 mg Tablet,Oral Only,Ext.Rel.12 Hr 15 mg PO QAM RF: 0 potassium chloride 10 mEq Tablet Extended Release 10 meq PO BID RF: 0 calcium polycarbophil [Fiber Laxative (ca polycarbo)] 625 mg Tablet 1,250 mg PO BID RF: 0 terazosin 10 mg Capsule 10 mg PO HS RF: 0 Multi Vitamin 9 mg iron/15 mL Liquid 1 tab PO QAM RF: 0 Biofreeze (menthol) 4 % Gel 1 applic TOPICAL QID RF: 0 folic acid 1 mg Tablet 1 mg PO QAM RF: 0 docusate sodium [Stool Softener] 100 mg Tablet 100 mg PO BID RF: 0 cholecalciferol (vitamin D3) [Vitamin D3] 2,000 unit Tablet 2,000 unit PO HS RF: 0 Glucosamine Chondroitin 550-30-1 mg Capsule 1 cap PO BID RF: 0 Cyanobalamin 1 tab PO QAM RF: 0 losartan 50 mg Tablet 50 mg PO QAM RF: 0 sennosides [Senokot] 8.6 mg Tablet 8.6 mg PO BID RF: 0 methotrexate sodium 2.5 mg Tablet 6 mg PO WK RF: 0 Testosterone 1 ml INJ UD RF: 0 Discontinued aspirin 81 mg Tablet,Delayed Release (Dr/Ec) 81 mg PO QAM RF: 0 hydrocodone-acetaminophen 7.5-325 mg Tablet 2 tab PO QAM RF: 0 ibuprofen 800 mg Tablet 800 mg PO BID PRN (Reason: Pain) RF: 0 Discharge Orders: Discharge Order (Routine); Ordered 05/02/19 Ordered By: Eulalia Oscar/Other Patient Handouts: Arthroscopy Ankle After, Arthroscopy Ankle Dc, Ankle Surg Dc Admission Data Admit Date/Time: 05/01/19 14:07 Attending Provider: Quinton Bahena Admit Provider: Quinton Bahena Primary Care Provider: Napoleon Carballo Jr Other Interventions: Discharge Summary Assessment (RN) Last Done: 05/02/19 10:04 DC Date/Time DO NOT enter until pt leaves facility: 05/02/19 15:50
== END 2019-05-02 15:50 | disposition home or self-care (01) | DRG 469 ==
LOC: ASU 06:55 → 3E 14:07

== ENCOUNTER 2024-01-18 16:25 | Inpatient (IN) ==
--- OUTSIDE RECORDS SUMMARY | 2024-01-18 16:28 | External Medical Summary | Summary of Care ---
Author Name Unknown Organization [facility] Address [address] [place] [address] Phone [phone] Care Team Providers Care Sheet Ironworker Name Role Phone Otilio Rajan DO Primary Care Provider [phone] Encounter Details Date Type Department Care Team (Late st Contact Info) Description 01/06/2024 Orders Only Family Practice [address] [place] [address] [place] [id number] Otilio Rajan DO [address] [place] [address] Allergies Active Allergy Reactions Criticality Noted Date Comments Doxycycline Rash Low 07/03/2016 Gabapentin Medium 07/04/2023 Other Reaction(s): Dizziness Lisinopril Cough Low 03/01/2022 documented as of this encounter (statuses as of 01/06/2024) Medications Medication Sig Dispensed Refills Start Date End Date Status AMLODIPINE BESYLATE 10 MG PO TABS Take 1 Tablet by mouth in the morning. Active METOPROLOL TARTRATE 50 MG PO TABS Take 1 Tablet by mouth in the morning and 1 Tablet before bedtime. Active ACYCLOVIR 200 MG PO CAPS Take 1 Capsule by mouth in the morning and 1 Capsule before bedtime. For HSV. Active MORPHINE SULFATE 15 MG PO TABS Take 1 Tablet by mouth in the morning. Active docusate sodium (COLACE) 100 MG Capsule Take 1 Cap by mouth 2 times a day. See PCP for management. 60 Cap 03/15/2016 Active HYDROcodone-Acetamin ophen 7.5-325 MG Oral Tablet Take 2 Tablets by mouth in the morning. Active Folic Acid 1 MG Oral Tablet Take 1 Tablet by mouth in the morning. Active Terazosin HCl 10 MG Oral Capsule Take 1 Capsule by mouth at bedtime. Active Celecoxib 100 MG Oral Capsule (CeleBREX) TAKE ONE CAPSULE BY MOUTH TWICE A DAY FOR PAIN 08/18/2020 Active Diclofenac Sodium 1 % External Gel (Voltaren) Apply topically to affected area . Active Methotrexate 2.5 MG Oral Tablet Take 6 Tablets by mouth once a week. 78 Tablet 1 11/18/2023 Active Cyanocobalamin 1000 MCG Oral Tablet (Cyanocobalamin) Take 1 Tablet by mouth in the morning. Active Multivitamin Men 50+ Oral Tablet Take 1 Tablet by mouth in the morning. Active Cholecalciferol 50 MCG (2000 UT) Oral Capsule Take 1 Capsule by mouth in the morning. Active Menthol-Camphor 3-3 % External Gel Apply topically to affected area as needed. Active Fluticasone Propionate 50 MCG/ACT Nasal Suspension (Flonase) Administer 2 Sprays into each nostril in the morning. Active Glucosamine Chondr 1500 Complx Oral Capsule Take 1 Capsule by mouth in the morning and 1 Capsule before bedtime. Active Rivaroxaban 20 MG Oral Tablet (Xarelto) Take 1 Tablet by mouth daily with dinner. Active Pantoprazole Sodium 40 MG Oral Tablet Delayed Release (Protonix) Take 1 Tablet by mouth in the morning. 03/18/2023 Active Potassium Chloride ER 20 MEQ Oral Tablet Extended Release Take 1 Tablet by mouth in the morning and 1 Tablet before bedtime. Active Sennosides 8.6 MG Oral Tablet (Senokot) Take 1 Tablet by mouth in the morning and 1 Tablet before bedtime. Active Testosterone 20.25 MG/1.25GM (1.62%) Transdermal Gel Apply 2 pumps amount over max area of ONE upper arm and shoulder every day 01/15/2023 Active Naloxone HCl 4 MG/0.1ML Nasal Liquid (Narcan Nasal) Administer 0.1 mL into nostril as needed (overdose). Active documented as of this encounter (statuses as of 01/06/2024) Active Problems Problem Noted Date Diagnosed Date Status post total bilateral knee replacement 07/2023 Status post replacement of left shoulder joint 1 Primary osteoarthritis of right shoulder 024 Gastroesophageal reflux disease without esophagi tis 01/03/2024 BPH with obstruction/lower urinary tract symptom s 01/03/2024 Hypogonadism in male 01/03/2024 Chronic pain syndrome 01/03/2024 Obstructive sleep apnea of adult 01/03/2024 Prediabetes 01/03/2024 Paroxysmal atrial fibrillation 01/03/2024 Hereditary hemochromatosis 05/16/2021 Inflammatory polyarthritis 01/19/2021 Encounter for therapeutic drug monitoring 2020 Diverticulitis of colon 03/15/2016 BMI 35-39 ISOLATED (SEE ACTUAL BMI) 09/12/2009 Overview: Per Obesity Protocol, #19 HTN, goal below 140/90 02/17/2009 Overview: Modified per HTN protocol #16. Pure hypercholesterolemia Generalized osteoarthritis Primary osteoarthritis of both hands DDD (degenerative disc disease), lumbar documented as of this encounter (statuses as of 01/06/2024) Resolved Problems Problem Noted Date Diagnosed Date Resolved Date Acute appendicitis 03/12/2016 6 HTN, goal to be determined 1 04/23/2008 Overview: Modified per HTN protocol #16. documented as of this encounter (statuses as of 01/06/2024) Immunizations Name Administration Dates Next Due COVID-19 mRNA, LNP-s, No Pre serve, 2-Dose Series (Moderna) 03/07/2021,09/05/2020,08/05/2020 DTaP Dipth/Tet/Acell Pertussis (Infanrix), Peds 04/01/1988 H1N1 2009 Influenza, IM 03/07/2009 Pneumococcal Conjugate Vacc, 13 Valent (Prevnar) 02/15/2017 Pneumococcal Conjugate Vacci ne, 20-valent ([id number]) 09/07/2022 Pneumococcal Polysaccharide PPV23 (Pneumovax) 12/01/2015 Seasonal Influenza Vac., MDV , IM, 0.5 mL (Fluzone) 02/12/2018,02/15/2017,02/08/2016,02/08 Seasonal Influenza Virus Vac cine, Unspecified Formulation 11/30/2013,12/22/2012,12/10/2011,12/08,01/14/2010,03/07/2009,02/27/2008 ,02/08/2007,01/12/2005,03/05/2003,04/2001,01/11/2002 Seasonal Influenza, Quadriva lent Hd, 65+ Yrs 12/12/2022,01/17/2021,02/16/2020 Seasonal Influenza, Quadriva lent, No Preserve, IM 02/02/2022 Seasonal Influenza, Trivalen t, (IIV3), PF, (Fluzone) 01/02/2024 TD - Tetanus/Diptheria (ADULT) 09/04/2021,2010,04/01/1999 TDAP, Age 7 and older, IM (Adacel) 12/08/2010 Varicella Zoster Vaccine (Adult) 06/23/2012 Zoster Vaccine Recombinant (Shingrix) 09/25/2019 documented as of this encounter Social History Tobacco Use Types Packs/Day Years Used Date Smoking Tobacco: Never Smokeless Tobacco: Never Alcohol Use Standard Drinks/Week Comments Yes 0 (1 standard drink = 0.6 oz pur e alcohol) occasional- 6 pack/mo Utilities Answer Date Recorded Do you have trouble paying y our heating, water, or electric bill? (Adult - for ages 18 years and over) Not on file 09/17/2023 Is your family able to pay t he heat, water, or electric bill? (Household - for ages 0-17 years) Not on file 09/17/2023 Does your family have access to good internet? (Household - for ages 0-17 years) Not on file 09/17/2023 Social Connections Answer Date Recorded How often do you feel lonely or isolated from those around you? (Adult - for ages 18 years and over) Not on file 09/17/2023 Sex and Gender Information Value Date Recorded Sex Assigned at Not on file Gender Identity Not on file Sexual Orientation Not on file Job Start Date Occupation Industry Not on file Not on file Not on file documented as of this encounter Functional Status Functional Status Response Date of Assess ment Are you deaf or do you have serious difficulty h earing? No 03/12/2016 Are you blind or do you have serious difficulty seeing, even when wearing glasses? No 03/12/2016 Do you have serious difficul ty walking or climbing stairs? (5 years old or older) No 03/12/2016 Do you have difficulty dress ing or bathing? (5 years old or older) No 03/12/2016 Because of a physical, menta l, or emotional condition, do you have difficulty doing errands alone such as visiting a doctor s office or shopping? (15 years old or older) No 03/12/20 16 Cognitive Status Response Date of Assessm ent Because of a physical, menta l, or emotional condition, do you have serious difficulty concentrating, remembering, or making decisions? (5 years old or older) No 03/12/2016 documented as of this encounter Plan of Treatment Upcoming Encounters Date Type Department Care Team (Late st Contact Info) Description 04/09/2024 8:00 AM EST Office Visit Family Practice [address] [place] [address] [address] [place] [address] Otilio Rajan, DO [address] [place] [address] 05/01/2024 8:00 AM EST Office Visit Rheumatology [facility] [address] [place] [address] Khoa Carlson MD [address] [place] [address] Health Maintenance Due Date Last Done Comments Depression Screening 1962 Hepatitis C Screening 01/28/1970 Cologuard 01/28/1997 Colonoscopy 01/28/1997 11/26/2023 Sigmoidoscopy 01/28/1997 Adult Wellness Visit 01/28/2018 Zoster Vaccines (2 of 2) 11/20/2019 09/25/2019, /07/2012 *BASELINE EKG FOR HTN 04/10/2021 Colorectal Cancer Screening 01/19/2022 Fecal Occult Blood Test 01/19/2022 01/19/2021 COVID-19 Vaccine ( season) 2023 03/07/2021, 09/05/2020, 08/05/2020 GFR 09/02/2024 12/31/2023, 06/07/2023, 08/31/2022, Additional history exists HbA1c 09/02/2024 09/03/2023, 08/31/2022 Albumin/Creatinine Ratio 08/31/2025 08/31/2022 Lipid Panel 09/02/2028 09/03/2023, 05/2022, 08/08/2020 DTap/Tdap Vaccines (6 - Td or Tdap) 09/05/2031 09/04/2021, 12/08/2010, 12/08/2010, Additional history exists Pneumococcal Vaccine: 65+ Years Completed 09/07/2022, 02/15/2017, 12/01/2015 Influenza Vaccine (FLU shot) Completed 05/2023, 12/12/2022, 02/02/2022, Additional history exists HPV (Gardasil) Vaccine Aged Out No lo nger eligible based on patient's age to complete this topic Hepatitis B Vaccine Aged Out No longe r eligible based on patient's age to complete this topic MENINGOCOCCAL (MENACTRA/MENVEO) Aged Out No longer eligible based on patient's age to complete this topic documented as of this encounter Medical Devices Not on filedocumented as of this encounter Procedures Procedure Name Priority Date/Time Associated Diagnosis Comments CHEMISTRY-OUTSIDE Routine 12/31/2023 documented in this encounter Results * CHEMISTRY-OUTSIDE (12/31/2023) Not all results display below - see scan for full detail OUTSIDE LAB (SEE SCANNED REPORT) Comment:SEE SCAN - BMP,CBC,P T/INR CREATININE 1.05 0.6 - 1.4 MG/DL OUTSIDE LAB (SEE SCANNED REPORT) EGFR 71.1 ML/MIN OUTSIDE LA B (SEE SCANNED REPORT) POTASSIUM 4.3 3.5 - 5.1 MMOL/L OUTSIDE LAB (SEE SCANNED REPORT) GLUCOSE 86 70 - 99 MG/DL OUTSIDE LAB (SEE SCANNED REPORT) HOURS FASTING OUTSID E LAB (SEE SCANNED REPORT) TRIGLYCERIDES-OUT SIDE LAB OUTSIDE LAB (SEE SCANNED REPORT) CHOLESTEROL-OUTSI DE LAB OUTSIDE LAB (SEE SCANNED REPORT) HDL-OUTSIDE LAB OUTS RADHA LAB (SEE SCANNED REPORT) CHOL/HDL RATIO-OUTSIDE LAB OUTSIDE LA B (SEE SCANNED REPORT) LDL (CALCULATED)-OUTS RADHA LAB OUTSIDE LAB (SEE SCANNED REPORT) LDL (DIRECT MEASURE)-OUTSIDE LAB OUTSIDE LAB (SEE SCANNED REPORT) HEMOGLOBIN, T6B-LEPLQGE LAB OUTSIDE LAB (SEE SCANNED REPORT) PHOSPHORUS-OUTSID E LAB OUTSIDE LAB (SEE SCANNED REPORT) PTH-OUTSIDE LAB OUTS RADHA LAB (SEE SCANNED REPORT) MICROALBUMIN RATIO-OUTSIDE LAB OUTSIDE LA B (SEE SCANNED REPORT) PROTEIN, UA-OUTSIDE LAB OUTSIDE LAB (SEE SCANNED REPORT) HGB 15.0 14.0 - 18.0 G/DL OUTSIDE LAB (SEE SCANNED REPORT) 12/31/2023 Khoa Pardo DO LABORATORY OUTSIDE LAB (SEE SCANNED REPORT) documented in this encounter Advance Directives * Full Code (Latest Code Status on File) Date Activated Date Inactivated Comments 03/12/2016 1:14 AM 03/15/2016 4:46 PM Question Answer Comments Discussion of Advance Directives occurred with: Not Discussed Does the patient have a Living Will? No Does the patient have Health Care Power of Attor abilio? No Care Teams Sheet Ironworker Relationship Specialty Start Date End Date Otilio Rajan DO [address] [place] [facility] [place] [address] PCP - General Internal Medicine 01/03/24 documented as of this encounter
--- OUTSIDE RECORDS SUMMARY | 2024-01-18 16:28 | External Medical Summary | Summary of Care ---
Author Name Unknown Organization [facility] Address [address] [facility] [place] [address] Phone [phone] Care Team Providers Care Mold Stacker Name Role Phone Otilio Rajan DO Primary Care Provider [phone] Encounter Details Date Type Department Care Team (Late st Contact Info) Description 10/04/2023 Result Scan Unspecified Department <No scans attached> Allergies Active Allergy Reactions Criticality Noted Date [...] PCP for management. 60 Cap 03/15/2016 Active HYDROcodone-Acetamino phen 7.5-325 MG Oral Tablet Take 2 Tablets [...] Apply topically to affected area . Active documented as of this encounter (statuses [...] (Prevnar) 02/15/2017 Pneumococcal Conjugate Vacci ne, 20-valent ([id number]) 09/07/2022 Pneumococcal Polysaccharide PPV23 (Pneumovax) 12/01/2015 Seasonal Influenza Vac., MDV , IM, 0.5 mL (Fluzone) 02/12/2018,02/15/2017,02/08/2016,02/08 Seasonal Influenza Virus Vac cine, Unspecified Formulation 11/30/2013,12/22/2012,12/10/2011,12/08,01/14/2010,03/07/2009,02/27/2008 ,02/08/2007,01/12/2005,03/05/2003,04/2001,01/11/2002 Seasonal Influenza, Quadriva lent Hd, 65+ Yrs 12/12/2022,01/17/2021,02/16/2020 Seasonal Influenza, Quadriva lent, No Preserve, IM 02/02/2022 TD - Tetanus/Diptheria (ADULT) 09/04/2021,2010,04/01/1999 TDAP, Age [...] 8:00 AM EST Office Visit Family Practice [address] [place] [address] [address] [place] [address] Otilio Rajan, DO [address] [place] [address] 05/01/2024 8:00 AM EST Office Visit Rheumatology [facility] [address] [place] [address] Khoa Carlson MD [address] [place] [address] Health Maintenance Due Date Last Done Comments Depression Screening 1962 Hepatitis C Screening 01/28/1970 Cologuard 01/28/1997 Colonoscopy 01/28/1997 11/26/2023 Sigmoidoscopy 01/28/1997 Adult Wellness Visit 01/28/2018 Zoster Vaccines (2 of 2) 11/20/2019 09/25/2019, 03/2 07/2012 *BASELINE EKG FOR HTN 04/10/2021 Colorectal Cancer Screening 01/19/2022 Fecal Occult Blood Test 01/19/2022 01/19/2021 COVID-19 Vaccine ( season) 2023 03/07/2021, 09/05/2020, 08/05/2020 GFR 09/02/2024 12/31/2023, 07/2023, 08/31/2022, Additional history exists HbA1c 09/02/2024 09/03/2023, [...] Procedure Name Priority Date/Time Associated Diagnosis Comments OUTSIDE LAB RESULTS 10/04/2023 documented in this encounter Results * OUTSIDE LAB RESULTS (10/04/2023) 10/04/2023 No Physician Data Unknown LABORATORY documented in this encounter Advance Directives * Full Code (Latest Code Status on File) Date Activated Date Inactivated Comments 03/12/2016 1:14 AM 03/15/2016 4:46 PM Question Answer Comments Discussion of Advance Directives occurred with: Not Discussed Does the patient have a Living Will? No Does the patient have Health Care Power of Attor abilio? No Care Teams Mold Stacker Relationship Specialty Start Date End Date Otilio Rajan DO [address] [place] [address] PCP - General Internal Medicine 01/03/24 documented as of this encounter
--- OUTSIDE RECORDS SUMMARY | 2024-01-18 16:28 | External Medical Summary | Summary of Care ---
Author Name Unknown Organization [facility] Address [address] [facility] [place] [address] Phone [phone] Care Team Providers Care Front Maker Lockstitch Name Role Phone Otilio Rajan DO Primary Care Provider [phone] Reason for Visit * Reason Comments NEW PATIENT Pt here for NPOV Encounter Details Date Type Department Care Team (Latest Contact Info) Description 01/03/2024 8:00 AM EDT Office Visit Family Practice [address] [facility], [place] [address] [place] [address] Otilio Rajan DO [address] [place] [address] Paroxysmal atrial fibrillation (HCC)*; HTN, goal below 140/90; Pure hypercholesterolemia; Hereditary hemochromatosis (HCC); Inflammatory polyarthritis (HCC); Degeneration of intervertebral disc of lumbar region with discogenic back pain and lower extremity pain; Status post total bilateral knee replacement; Status post replacement of left shoulder joint; Primary osteoarthritis of right shoulder; Gastroesophageal reflux disease without esophagitis; BPH with obstruction/lower urinary tract symptoms; Hypogonadism in male; Chronic pain syndrome; Obstructive sleep apnea of adult; Prediabetes; Risk and functional assessment Allergies Active Allergy Reactions Criticality Noted Date [...] PCP for management. 60 Cap 03/15/2016 Active HYDROcodone-Acetam inophen 7.5-325 MG Oral Tablet Take 2 Tablets [...] a week. 78 Tablet 1 11/18/2023 Active Pantoprazole Sodium 40 MG Oral Tablet Delayed Release (Protonix) Take 1 Tablet by mouth in the morning. 03/18/2023 Active Testosterone 20.25 MG/1.25GM (1.62%) Transdermal Gel Apply 2 pumps amount over max area of ONE upper arm and shoulder every day 01/15/2023 Active Atorvastatin Calcium 10 MG Oral Tablet (Lipitor) Take 8 Tablets by mouth in the morning. 01/03/20 24 Discontinu ed(Medicat ion List Clean Up) Testosterone Cypionate 200 MG/ML Intramuscular Solution (Depotestosterone Cypionate) INJECT 0.5ML INTRAMUSCULARY EVERY 10 DAYS 11/08/2021 01/03/20 24 Discontinu ed(Medicat ion List Clean Up) documented as of this encounter (statuses as [...] (Prevnar) 02/15/2017 Pneumococcal Conjugate Vacci ne, 20-valent ([id number]) 09/07/2022 Pneumococcal Polysaccharide PPV23 (Pneumovax) 12/01/2015 Seasonal Influenza Vac., MDV , IM, 0.5 mL (Fluzone) 02/12/2018,02/15/2017,02/08/2016,02/08 Seasonal Influenza Virus Vac cine, Unspecified Formulation 11/30/2013,12/22/2012,12/10/2011,12/08,01/14/2010,03/07/2009,02/27/2008 ,02/08/2007,01/12/2005,03/05/2003,11/0 04/2001,01/11/2002 Seasonal Influenza, Quadriva lent Hd, 65+ Yrs [...] Date Smoking Tobacco: Never Smokeless Tobacco: Never Tobacco Cessation:Counseling Given: Yes Alcohol Use Standard Drinks/Week Comments Yes 0 [...] on file documented as of this encounter Last Filed Vital Signs Vital Sign Reading Time Taken Comments Blood Pressure 142/92 01/03/2024 8:28 AM EDT Pulse 93 01/03/2024 8:28 AM EDT Temperature 35.7 C (96.3 F) 01/03/2024 8:28 AM ED T Respiratory Rate 16 01/03/2024 8:28 AM EDT Oxygen Saturation 96% 01/03/2024 8:28 AM EDT Inhaled Oxygen Concentration - - Weight 106.1 kg (233 lb 12.8 oz) 01/03/2024 8:28 AM EDT Height 172.7 cm (5' 8") 01/03/2024 8:28 AM EDT Body Mass Index 35.55 01/03/2024 8:28 AM EDT documented in this encounter Functional Status Functional Status Response [...] No 03/12/2016 documented as of this encounter Patient Instructions * Patient Instructions* Elvie Perez CCMA - 01/03/2024 8:26 AM EDT Patient Instructions - Fall Prevention (This education is for all patients over 65 regardless of symptoms) Remember to take your current medications as prescribed. In order to prevent falls, you are encouraged to: Exercise Utilize assistive/adaptive devices Avoid multifocal lenses when walking Avoid hazards in home Maintain a regular toileting schedule Any questions please contact our office. Preventing Falls in the Home (This education is for all patients over 65 regardless of symptoms) As you get older, falls are more likely. Thats because your reaction time slows. Your muscles and joints may also get stiffer, making them less flexible. Illness, medications, and vision changes can also affect your balance. A fall could leave you unable to live on your own. To make your home safer, follow these tips: Floors Put nonskid pads under area rugs Remove throw rugs Replace worn floor coverings Tack carpets firmly to each step on carpeted stairs. Put nonskid strips on the edges of uncarpeted stairs Keep floors and stairs free of clutter and cords Arrange furniture so there are clear pathways Clean up any spills right away Bathrooms Install grab bars in the tub or shower Apply nonskid strips or put a nonskid rubber mat in the tub or shower Sit on a bath chair to bathe Use bathmats with nonskid backing Lighting Keep a flashlight in each room Put a nightlight along the pathway between the bedroom and the bathroom [employer] Patient Education Copyright 2008 - 2010 [employer] except where otherwise noted Preventing Falls: Exercises to Improve Balance, Flexibility, Strength, and Staying Power (This education is for all patients over 65 regardless of symptoms) Certain types of exercises may help make you less likely to fall. Try the ones below. Or do other exercises that your healthcare provider suggests. Depending on your health, you may need to start slowly. Dont let that stop you. Even small amounts of exercise can help you. Be sure to talk to yourhealthcare provider before starting any exercise program. Improve Balance Many types of exercise can help improve balance. Zheng chi and yoga are good examples. Heres another one to try. You can do it anytime and almost anywhere. Stand next to a counter or solid support. Push yourself up onto your tiptoes. Hold for 5 seconds. If you start to lose your balance, hold on to the counter. Rest and repeat 5 times. Work up to holding for 20 to 30 seconds, if you can. Increase Flexibility Being more flexible makes it easier for you to move around safely. Try exercises like the seated hamstring stretch. Sit in a chair and put one foot on a stool. Straighten your leg and reach with both hands down either side of your leg. Reach as far down your leg as you can. Hold for about 20 seconds. Go back to the starting position. Then repeat 5 times. Switch legs. Build Strength Resistance exercises help build strength. You can do them without equipment. Or you can use weights, elastic bands, or special machines. One such exercise is called the biceps curl. You can hold a 1 pound weight or even a can of soup. Do this exercise at least 3 times a week. Strive for everyday. Sit up straight in a chair. Keep your elbow close to your body and your wrist straight. Bend your arm, moving your hand up to your shoulder. Then slowly lower your arm. Repeat 5 times. Switch to the other arm. Build Your Staying Power Aerobic exercises make your heart and lungs stronger so you can keep moving longer. Walking and swimming are two of the best types of exercises you can do. Using a stationary bike is great, too. Find an aerobic exercise that you enjoy. Start slowly and build up. Even 5 minutes is helpful. Aimfor a goal of 30 minutes, at least 3 times a week. You dont have to do 30 minutes in one session. Break it up and walk a little throughout the day. More Helpful Tips Start easy. Slowly work up to doing more. Talk with your healthcare provider about the best exercises for you. Call senior centers or health clubs about exercise programs. If needed, have a family member watch you walk every so often to check your stability. Exercise with a friend. Choose an activity you both enjoy. Try exercises that you can do anytime, anywhere. Here are two examples. Have someone with you when you first try these: Practice walking by placing one foot right in front of the other. Stand up and sit down 10 times. Repeat this throughout the day. [employer] Patient Education Copyright 2009 - 2010 [employer] except where otherwise noted. Preventing Falls: Moving Safely Using a Cane or Walker (This education is for all patients over 65 regardless of symptoms) Keep the cane away from your feet so you dont trip. A walking aid, such as a cane or walker, can help you stay more independent and avoid falls. Remember to keep your walking aid within easy reach when youre in a chair or in bed. And learn how to use it safely so you dont injure yourself. Using a Cane If you have a stronger side, hold the cane on that side. Get your balance. Move the cane and your weaker leg forward. Support your weight on both the cane and your weaker side. Step with your stronger leg. Start again from step 1. If youre using a folding walker, be sure you know how to lock it open. Check that its locked open before each use. Using a Walker Roll the walker (or lift it, if youre using one without wheels) forward about 12 inches. Step forward with your weaker leg first. Use the walker to help keep your balance. Bring your other foot forward to the center of the walker. Start again from step 1. Helpful Tips Check with your healthcare provider about the right walking aid to use. Ask about a walker with a seat attached. Check the tips of your cane or walker to make sure they have nonskid covers. Move slowly from room to room. Dont coronel. Sit down to get dressed. Use a gopi pack or backpack to keep your hands free. Get help for jobs that mean climbing, even on a stepstool. [employer] Patient Education Copyright 2008 - 2010 [employer] except where otherwise noted. Treating Urinary Incontinence in Men (This education is for all patients over 65 regardless of symptoms) You can't always control the release of urine. You may leak urine. Or you may not be able to hold your urine until you can get to a bathroom. This is called urinary incontinence. The problem can be managed. Talk to your doctor about your treatment options. Taking Medications Prescription medications may help you. They may: Help the sphincter to work better. (This is the muscle that closes to keep urine from leaking out of the bladder.) Help stop the bladder from braydon too often to push urine out. Help the bladder muscles contract with more force. Help relax the sphincter muscle and allow urine to flow more freely. Making Changes to Your Routine Certain changes in your daily routine may help. These include: Avoiding caffeine and alcohol. Using timed voiding. This is following a schedule for drinking fluids and urinating. Doing Kegel exercises daily. These exercises involve tightening the muscles in your sphincter and around your bladder to help strengthen them. Your doctor can explain how to do them. Using a Catheter A catheter is a narrow tube that is inserted through the urethra into the bladder. It drains urine.A condom catheter covers the penis. It channels urine into a collection bag. It is worn most of thetime. Intermittent catheterization means inserting a catheter to drain the bladder, then removing it. This is done on a regular schedule. Having Surgery If other options don't work, surgery may be recommended. If surgery is an option, your healthcare provider can discuss it with you and explain its risks and benefits. Healing After Prostate Surgery Surgery on the prostate gland can cause incontinence. Most often, the incontinence is only for a short time. It clears up when healing is complete. Very rarely, prostate surgery can result in permanent incontinence. documented in this encounter Progress Notes * Otilio Rajan, - 01/03/2024 8:57 AM EDT SUBJECTIVE: Damaso Ybarra is a 73 year old male. Chief Complaint Patient presents with NEW PATIENT Pt here for NPOV HPI: Patient is a 73 year old male with a history of HTN, Atrial Fibrillation, Hyperlipidemia, DDD Lumbar Spine, Inflammatory Polyarthritis, Hereditary Hemochromatosis, Bilateral knee replacement, Left shoulder Replacement, GERD, BPH, Hypogonadism, Chronic Pain Syndrome, Obstructive Sleep Apnea, and Pred iabetes that is here to establish care. He is scheduled for right shoulder replacement at [facility]. No chest pain or shortness of breath are present. Chronic back pain and multiple joint pains are present at all times. He follows with Orthopedics at [facility], and Pain Management at the [facility]. Weight is stable and appetite is good. Patient Active Problem List Diagnosis Pure hypercholesterolemia HTN, goal below 140/90 BMI 35-39 ISOLATED (SEE ACTUAL BMI) Diverticulitis of colon Generalized osteoarthritis Primary osteoarthritis of both hands DDD (degenerative disc disease), lumbar Inflammatory polyarthritis (HCC) Encounter for therapeutic drug monitoring Hereditary hemochromatosis (HCC) Status post total bilateral knee replacement Status post replacement of left shoulder joint Primary osteoarthritis of right shoulder Gastroesophageal reflux disease without esophagitis BPH with obstruction/lower urinary tract symptoms Hypogonadism in male Chronic pain syndrome Obstructive sleep apnea of adult Prediabetes Paroxysmal atrial fibrillation (HCC) Current Outpatient Medications Medication Sig Dispense Refill AMLODIPINE BESYLATE 10 MG PO TABS Take 1 Tablet by mouth in the morning. METOPROLOL TARTRATE 50 MG PO TABS Take 1 Tablet by mouth in the morning and 1 Tablet before bedtime. ACYCLOVIR 200 MG PO CAPS Take 1 Capsule by mouth in the morning and 1 Capsule before bedtime. For HSV. MORPHINE SULFATE 15 MG PO TABS Take 1 Tablet by mouth in the morning. docusate sodium (COLACE) 100 MG Capsule Take 1 Cap by mouth 2 times a day. See PCP for management. 60 Cap 0 HYDROcodone-Acetaminophen 7.5-325 MG Oral Tablet Take 2 Tablets by mouth in the morning. Folic Acid 1 MG Oral Tablet Take 1 Tablet by mouth in the morning. Terazosin HCl 10 MG Oral Capsule Take 1 Capsule by mouth at bedtime. Celecoxib 100 MG Oral Capsule (CeleBREX) TAKE ONE CAPSULE BY MOUTH TWICE A DAY FOR PAIN Diclofenac Sodium 1 % External Gel (Voltaren) Apply topically to affected area . Methotrexate 2.5 MG Oral Tablet Take 6 Tablets by mouth once a week. 78 Tablet 1 Cyanocobalamin 1000 MCG Oral Tablet (Cyanocobalamin) Take 1 Tablet by mouth in the morning. Multivitamin Men 50+ Oral Tablet Take 1 Tablet by mouth in the morning. Cholecalciferol 50 MCG (2000 UT) Oral Capsule Take 1 Capsule by mouth in the morning. Menthol-Camphor 3-3 % External Gel Apply topically to affected area as needed. Fluticasone Propionate 50 MCG/ACT Nasal Suspension (Flonase) Administer 2 Sprays into each nostril in the morning. Glucosamine Chondr 1500 Complx Oral Capsule Take 1 Capsule by mouth in the morning and 1 Capsule before bedtime. Rivaroxaban 20 MG Oral Tablet (Xarelto) Take 1 Tablet by mouth daily with dinner. Pantoprazole Sodium 40 MG Oral Tablet Delayed Release (Protonix) Take 1 Tablet by mouth in the morning. Potassium Chloride ER 20 MEQ Oral Tablet Extended Release Take 1 Tablet by mouth in the morning and1 Tablet before bedtime. Sennosides 8.6 MG Oral Tablet (Senokot) Take 1 Tablet by mouth in the morning and 1 Tablet before bedtime. Testosterone 20.25 MG/1.25GM (1.62%) Transdermal Gel Apply 2 pumps amount over max area of ONE upper arm and shoulder every day Naloxone HCl 4 MG/0.1ML Nasal Liquid (Narcan Nasal) Administer 0.1 mL into nostril as needed (overdose). No current facility-administered medications for this visit. The patient's medication list was reviewed and updated as needed. Past Medical History: Diagnosis Date BPH with obstruction/lower urinary tract symptoms 01/03/2024 Chronic pain Chronic pain syndrome 01/03/2024 DDD (degenerative disc disease), lumbar Dyslipidemia, goal to be determined Gastroesophageal reflux disease without esophagitis 01/03/2024 Generalized osteoarthritis Hereditary hemochromatosis (HCC) 05/16/2021 HTN, GOAL BELOW 140/90 02/17/2009 Modified per HTN protocol #16. HTN, goal to be determined Inflammatory polyarthritis (HCC) 01/19/2021 Low testosterone Prediabetes 01/03/2024 Primary osteoarthritis of both hands Pure hypercholesterolemia Past Surgical History: Procedure Laterality Date ANKLE ARTHROSCOPY/SURGERY Left ankle replacement ARTHROPLASTY KNEE TOTAL Right 04/09/2008 Knee replacement right ARTHROPLASTY KNEE TOTAL Left CARPAL TUNNEL SURGERY Bilateral DRAINAGE OF ABDOMINAL ABSCESS N/A 03/12/2016 DRAINAGE OF ABDOMEN ABSCESS OPEN performed by Ryan Lugo [place] [facility] [place]PLORATION OF ABDOMEN N/A 03/12/2016 EXPLORATORY LAPAROTOMY performed by Ryan Lugo MD at [facility] FOOT/TOE SURGERY NEC Right hammertoe surgery INFORMATION 04/01/1990 Other both biceps LAPAROSCOPY DIAGNOSTIC N/A 03/12/2016 LAPAROSCOPY DIAGNOSTIC performed by Ryan Lugo MD at [facility] LAPAROSCOPY;APPENDECTOMY N/A 03/12/2016 LAPAROSCOPIC APPENDECTOMY performed by Ryan Lugo MD at [facility] Review of patient's allergies indicates: Allergen Reactions Gabapentin Other Reaction(s): Dizziness Doxycycline Rash Lisinopril Cough Family History Problem Relation Name Age of Onset Cancer Mother cervical Diabetes Mother Hypertension Mother Cancer Father liver,lung Osteoarthritis Father Osteoarthritis Brother hands Cancer Brother Osteoarthritis Brother hands No Known Problems Daughter No Known Problems Daughter Other (Other) Son at 26 of suicide Social History Tobacco Use Smoking status: Never Smokeless tobacco: Never Vaping Use Vaping status: Never Used Substance Use Topics Alcohol use: Yes Comment: occasional- 6 pack/mo Drug use: No Comment: history of "smoking a lot of dope" many years ago Review of Systems Constitutional: Negative for appetite change, chills, fatigue, fever and unexpected weight change. HENT: Negative for congestion, sore throat and trouble swallowing. Respiratory: Negative for cough, shortness of breath and wheezing. Cardiovascular: Negative for chest pain, palpitations and leg swelling. Gastrointestinal: Negative for abdominal pain, blood in stool, constipation, diarrhea, nausea and vomiting. Genitourinary: Negative for dysuria, frequency and hematuria. Musculoskeletal: Positive for arthralgias, back pain and myalgias. Negative for gait problem. Neurological: Negative for dizziness, syncope and headaches. Psychiatric/Behavioral: Negative for confusion, decreased concentration and sleep disturbance. OBJECTIVE: BP 142/92 (BP Site: Left Arm, BP Position: Sitting) | Pulse 93 | Temp 35.7 C (96.3 F) | Resp 16| Ht 1.727 m (5' 8") | Wt 106.1 kg (233 lb 12.8 oz) | SpO2 96% | BMI 35.55 kg/m | BSA 2.26 m Physical Exam Vitals and nursing note reviewed. Constitutional: General: He is not in acute distress. Appearance: Normal appearance. He is not toxic-appearing. HENT: Head: Normocephalic and atraumatic. Cardiovascular: Rate and Rhythm: Normal rate. Rhythm irregular. Heart sounds: Normal heart sounds. No murmur heard. No gallop. Pulmonary: Effort: Pulmonary effort is normal. Breath sounds: Normal breath sounds. No wheezing, rhonchi or rales. Abdominal: General: Bowel sounds are normal. There is no distension. Palpations: Abdomen is soft. Tenderness: There is no abdominal tenderness. Musculoskeletal: Right lower leg: No edema. Left lower leg: No edema. Neurological: Mental Status: He is alert and oriented to person, place, and time. Mental status is at baseline. Motor: No weakness. Gait: Gait normal. Psychiatric: Mood and Affect: Mood normal. Behavior: Behavior normal. Thought Content: Thought content normal. PLAN AND ASSESSMENT: Paroxysmal atrial fibrillation (HCC) (Primary) Continue Rivaroxaban, and Metoprolol HTN, goal below 140/90 Continue Amlodipine, and Metoprolol Pure hypercholesterolemia Hereditary hemochromatosis (HCC) Obtain Hematology records Inflammatory polyarthritis (HCC) Continue Methotrexate, and Folic Acid per Rheumatology Degeneration of intervertebral disc of lumbar region with discogenic back pain and lower extremity pain Continue Narcotic pain medications per Pain Management at the [facility] Status post total bilateral knee replacement Status post replacement of left shoulder joint Primary osteoarthritis of right shoulder Gastroesophageal reflux disease without esophagitis Continue Pantoprazole BPH with obstruction/lower urinary tract symptoms Continue Terazosin Hypogonadism in male Continue Testosterone per Endocrinology Risk and functional assessment Chronic pain syndrome Continue Narcotic pain medications per Pain Management at the [facility] Obstructive sleep apnea of adult CPAP intolerant Prediabetes Follow-up: Return in about 3 months (around 04/04/2024), or if symptoms worsen or fail to improve. | Check-out note: Records release [facility] and [facility]. Ellis [facility] Oitlio Rajan DO 2:43 PM 01/03/2024 documented in this encounter Nursing Notes * Elvie Perez, DARIAN - 01/03/2024 8:27 AM EDT Chief Complaint Patient presents with NEW PATIENT Pt here for NPOV Would like vaccines today documented in this encounter Plan of Treatment Upcoming Encounters Date Type Department Care Team (Late st Contact Info) Description 04/09/2024 8:00 AM EST Office Visit Family Practice [address] [place] [address] [address] [place] [address] Otilio Rajan, [address] [place] [address] 05/01/2024 8:00 AM EST Office Visit Rheumatology [place] [id number] [place] [address] Khoa Carlson MD [facility] [place] [address] Health Maintenance Due Date Last Done Comments Depression Screening 1962 Hepatitis C Screening 01/28/1970 Cologuard 01/28/1997 Sigmoidoscopy 01/28/1997 Adult Wellness Visit 01/28/2018 Zoster Vaccines (2 of 2) 11/20/2019 09/25/2019, 05/31 *BASELINE EKG FOR HTN 04/10/2021 Fecal Occult Blood Test 01/19/2022 01/19/2021 COVID-19 Vaccine ( season) 2023 03/07/2021, 09/05/2020, 08/05/2020 HbA1c 09/02/2024 09/03/2023, 08/31/2022 GFR 12/30/2024 12/31/2023, 07/2023, 08/31/2022, Additional history exists Albumin/Creatinine Ratio 08/31/2025 08/31/2022 Lipid Panel 09/02/2028 09/03/2023, 060 05/2022, 08/08/2020 DTap/Tdap Vaccines (6 - Td or Tdap) 09/05/2031 09/04/2021, 12/08/2010, 12/08/2010, Additional history exists Colonoscopy 11/25/2033 11/26/2023 Colorectal Cancer Screening 11/25/2033 Pneumococcal Vaccine: 65+ Years Completed 09/07/2022, 02/15/2017, [...] Not on filedocumented as of this encounter Visit Diagnoses Diagnosis Paroxysmal atrial fibrillation (HCC)- Primary Atrial fibrillation HTN, goal below 140/90 Unspecified essential hypertension Pure hypercholesterolemia Hereditary hemochromatosis (HCC) Hereditary hemochromatosis Inflammatory polyarthritis (HCC) Unspecified inflammatory polyarthropathy Degeneration of intervertebral disc of lumbar region with discogenic back pain and lower extremity pain Status post total bilateral knee replacement Status post replacement of left shoulder joint Primary osteoarthritis of right shoulder Primary localized osteoarthrosis, shoulder region Gastroesophageal reflux disease without esophagitis Esophageal reflux BPH with obstruction/lower urinary tract symptoms Hypertrophy of prostate with urinary obstruction and other lower urinary tract symptoms (LUTS) Hypogonadism in male Chronic pain syndrome Obstructive sleep apnea of adult Obstructive sleep apnea (adult) (pediatric) Prediabetes Other abnormal glucose Risk and functional assessment Screening for unspecified condition documented in this encounter Advance Directives * Full Code (Latest Code Status on File) Date Activated Date Inactivated Comments 03/12/2016 1:14 AM 03/15/2016 4:46 PM Question Answer Comments Discussion of Advance Directives occurred with: Not Discussed Does the patient have a Living Will? No Does the patient have Health Care Power of Attor abilio? No Care Teams Front Maker Lockstitch Relationship Specialty Start Date End Date Otilio Rajan DO [address] [place] [address] PCP - General Internal Medicine 01/03/24 documented as of this encounter
--- OUTSIDE RECORDS SUMMARY | 2024-01-18 16:28 | External Medical Summary | Summary of Care ---
Author Name Unknown Organization [facility] [address] [facility] [facility] [address] Phone [phone] Care Team Providers Care Singeing Torch Operator Name Role Phone Otilio Rajan DO Primary Care Provider [phone] Reason for Visit * Reason Comments Dosage Adjustment In Person (Anticoag Cl inic) Medication Management Encounter Details Date Type Department Care Team (Late st Contact Info) Description 01/03/2024 8:00 AM EDT Pharmacy Family Practice 65 [facility] [address] [place] [address] Santiago, Pharmacist [address] [address] Medication management*; Need for RSV vaccination; Need for vaccination for zoster Allergies Active Allergy Reactions Criticality Noted Date Comments Doxycycline Rash Low 07/03/2016 Gabapentin Medium 07/04/2023 Other Reaction(s): Dizziness Lisinopril Cough Low 03/01/2022 documented as of this encounter (statuses as of 01/03/2024) Medications Medication Sig Dispensed Refills Start Date [...] mL into nostril as needed (overdose). Active GLUCOSAMINE MAXIMUM STRENGTH 1500 MG PO TABS one tablet by mouth am and at bedtime 10/04/20 24 Discontinu ed(Medicat ion List Clean Up) Apixaban 5 MG Oral Tablet (Eliquis) Take 1 Tablet by mouth in the morning and 1 Tablet before bedtime. 01/03/20 Discontinu ed(Medicat ion List Clean Up) Atorvastatin Calcium 10 MG Oral Tablet (Lipitor) Take 8 Tablets by mouth in the morning. 01/03/20 Discontinu ed(Medicat ion List Clean Up) Losartan Potassium 25 MG Oral Tablet (Cozaar) Take 1 Tablet by mouth in the morning. 01/03/20 Discontinu ed(Medicat ion List Clean Up) Omeprazole 20 MG Oral Capsule Delayed Release Take 1 Capsule by mouth in the morning. 01/03/20 Discontinu ed(Medicat ion List Clean Up) Potassium Chloride 20 MEQ Oral Packet Take 20 mEq by mouth in the morning and 20 mEq before bedtime. 01/03/20 Discontinu ed(Medicat ion List Clean Up) Testosterone Cypionate 200 MG/ML Intramuscular Solution (Depotestosterone Cypionate) INJECT 0.5ML INTRAMUSCULARY EVERY 10 DAYS 11/08/2021 01/03/20 Discontinu ed(Medicat ion List Clean Up) RSV mRNA Pre-F Virus Vaccine 50 MCG/0.5ML Intramuscular Suspension Prefilled SyringeIndications :Need for RSV vaccination Inject 0.5 mL into a large muscle once for 1 dose. 0.5 mL 01/03/2024 01/03/20 Discontinu ed(Formula ry/Cost) Zoster Vac Recomb Adjuvanted 50 MCG/0.5ML Intramuscular Suspension Reconstituted (Shingrix)Indicati ons:Need for vaccination for zoster Inject 0.5 mL into a large muscle 1 Each 01/03/2024 01/03/20 Discontinu ed(Formula ry/Cost) documented as of this encounter (statuses as of 01/03/2024) Active Problems Problem Noted Date Diagnosed Date Status post total bilateral knee replacement 07/2023 Status post replacement of left shoulder joint 1 Primary osteoarthritis of right shoulder 024 Gastroesophageal reflux disease without esophagi tis 01/03/2024 BPH with obstruction/lower urinary tract symptom s 01/03/2024 Hypogonadism in male 01/03/2024 Hereditary hemochromatosis 05/16/2021 Inflammatory polyarthritis 01/19/2021 Encounter for therapeutic drug monitoring 2020 Diverticulitis of colon 03/15/2016 BMI 35-39 ISOLATED (SEE ACTUAL BMI) 09/12/2009 Overview: Per Obesity Protocol, #19 HTN, goal below 140/90 02/17/2009 Overview: Modified per HTN protocol #16. Pure hypercholesterolemia Generalized osteoarthritis Primary osteoarthritis of both hands DDD (degenerative disc disease), lumbar documented as of this encounter (statuses as of 01/03/2024) Resolved Problems Problem Noted Date Diagnosed Date Resolved Date Acute appendicitis 03/12/2016 6 HTN, goal to be determined 1 04/23/2008 Overview: Modified per HTN protocol #16. documented as of this encounter (statuses as of 01/03/2024) Immunizations Name Administration Dates Next Due COVID-19 mRNA, LNP-s, No Pre serve, 2-Dose Series (Moderna) 03/07/2021,09/05/2020,08/05/2020 DTaP Dipth/Tet/Acell Pertussis (Infanrix), Peds 04/01/1988 H1N1 2009 Influenza, IM 03/07/2009 Pneumococcal Conjugate Vacc, 13 Valent (Prevnar) 02/15/2017 Pneumococcal Conjugate Vacci ne, 20-valent ([id number]) 09/07/2022 Pneumococcal Polysaccharide PPV23 (Pneumovax) 12/01/2015 Seasonal Influenza Vac., MDV , IM, 0.5 mL (Fluzone) 02/12/2018,02/15/2017,02/08/2016,02/08 Seasonal Influenza Virus Vac cine, Unspecified Formulation 11/30/2013,12/22/2012,12/10/2011,12/08,01/14/2010,03/07/2009,02/27/2008 ,02/08/2007,01/12/2005,03/05/2003,1104/2001,01/11/2002 Seasonal Influenza, Quadriva lent Hd, 65+ Yrs [...] this encounter Patient Instructions * Patient Instructions* Mona Campa RPh - 01/03/2024 8:37 AM EDT Possible side effects of RSV vaccine, (Respiratory Syncytial Virus), are usually mild and can include: Soreness, swelling or redness at injection site Low grade fever Body aches or joint pain Headache Nausea or diarrhea You may use a fever/pain reducing medication for these symptoms. LET YOUR DOCTOR KNOW IMMEDIATELY IF YOU HAVE DIFFICULTY BREATHING OR SWALLOWING, EXPERIENCE ITCHINGOF FEET OR HANDS, HAVE SWELLING OF EYES, FACE OR INSIDE OF NOSE. ~~PATIENT INSTRUCTIONS FOR SHINGRIX VACCINE~~ Possible side effects of Shingrix vaccine, (shingles), are usually mild and can include: 1. Soreness or redness at injection site 2. Low grade fever 3. Body aches You may use a fever / pain reducing medication as needed for these symptoms. LET YOUR DOCTOR KNOW IMMEDIATELY IF YOU HAVE DIFFICULTY BREATHING OR SWALLOWING, EXPERIENCE ITCHINGOF FEET OR HANDS, HAVE SWELLING OF EYES, FACE OR INSIDE OF NOSE. documented in this encounter Progress Notes * Mona Campa RPh - 01/03/2024 7:48 AM EDT Medication Therapy [facility] - Medication Reconciliation Encounter Type: discussed with patient Med Bottles Available for Review: no Med Rec Reason: New Patient Prescription insurance information: None - all meds from [facility] Do you have any other prescription coverage: No - gets all meds from the [facility] Preferred pharmacy: [facility] [x] Problem list reviewed [x] Allergies reviewed and updated if needed [x] Drug interaction check completed [x] HEDIS list addressed Immunizations: agreed to shingrix and RSV, however patient doesn't have drug coverage. [facility] Declined covid shot. Medication Organization/Adherence: Has home care nurse or caregiver: no Patient uses a pill box? Yes, refill(s) completed by self When you are at home, how often do you miss doses of medications? Never How difficult is it for you to pay for your medications? Not difficult at all How often do you experience side effects from your medications? Never Labs/Vitals/Risk Scores: The 10-year ASCVD risk score (Juan DOMINIQUE, et al., 2019) is: 25.4% Values used to calculate the score: Age: 73 years Sex: Male Is Non- : No Diabetic: No Tobacco smoker: No Systolic Blood Pressure: 142 mmHg Is BP treated: Yes HDL Cholesterol: 40.9 MG/DL Total Cholesterol: 155 MG/DL BP Readings from Last 3 Encounters: 01/03/24 142/92 03/05/23 130/88 06/18/22 98/60 Recent Labs Units 09/03/23 0000 08/31/22 0000 HEMOGLOBIN, [id number] LAB % 5.8 6.1 Recent Labs Units 09/03/23 0000 08/31/22 0000 ESTIMATED GLOMERULAR FILTRATION RATE - [facility] ML/MIN 80 70.3 Serum creatinine: 1 mg/dL 09/03/23 0000 Estimated creatinine clearance: 80 mL/min Assessment & Plan: Medication discrepancies identified: - patient taking acyclovir BID daily rather than PRN [facility] - Takes both hydrocodone and morphine together in AM. 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 yes Other medication problems identified: - had an episode this weekend where he felt woozy while cutting wood and almost fell on to his chainsaw. Discussed keeping up with water intake. - taking tylenol PM night. Patient education provided: Discussed risks of diphenhydramine in Tylenol PM. Patient advised to take plain tylenol only - 1000 mg (2 x 500mg). Already has issues with constipation and this can worsen it. Referral pended for follow up management of: N/A Summary- Changes & Recommendations: Med rec completed with patient. Unable to provide part D vaccines due to no drug coverage. Patient aware to get vaccines at [facility]. Stop tylenol PM. I spent a total of 20-29 minutes (exact time 25 mins) on the date of service in preparation, delivery, and documentation of the care provided to Damaso Ybarra excluding any time spent in the performance of separately billed services or time spent by another provider/QHP. Mona Randhawa [facility] Clinical Pharmacist - [facility] 01/03/2024, 7:48 AM documented in this encounter Plan of Treatment Upcoming Encounters Date Type Department Care Team (Late st Contact Info) Description 04/09/2024 8:00 AM EST Office Visit Family Practice [address] [place] [address] [address] [place] [address] Otilio Rajan, 293 [place] [address] 05/01/2024 8:00 AM EST Office Visit Rheumatology [place] [id number] [place] [address] Khoa Cralson MD [address] [place] [address] Health Maintenance Due Date Last Done Comments Depression Screening 1962 Hepatitis C Screening 01/28/1970 Cologuard 01/28/1997 Colonoscopy 01/28/1997 Sigmoidoscopy 01/28/1997 Adult Wellness Visit 01/28/2018 Zoster Vaccines (2 of 2) 11/20/2019 09/25/2019, 03/07/2012 *BASELINE EKG FOR HTN 04/10/2021 Colorectal Cancer Screening 01/19/2022 Fecal Occult Blood Test 01/19/2022 01/19/2021 COVID-19 Vaccine ( season) 2023 03/07/2021, 09/05/2020, 08/05/2020 GFR 09/02/2024 09/03/2023, 0 05/2022, 08/08/2020, Additional history exists Albumin/Creatinine Ratio 08/31/2025 08/31/2022 Lipid Panel 09/02/2028 09/03/2023, 0 05/2022, 08/08/2020 DTap/Tdap Vaccines (6 - Td [...] as of this encounter Visit Diagnoses Diagnosis Medication management- Primary Encounter for long-term (current) use of other medications Need for RSV vaccination Need for prophylactic vaccination and inoculation against respiratory syncytial virus Need for vaccination for zoster Need for prophylactic vaccination and inoculation against other viral diseases documented in this encounter Advance Directives * Full Code (Latest Code Status on File) Date Activated Date Inactivated Comments 03/12/2016 1:14 AM 03/15/2016 4:46 PM Question Answer Comments Discussion of Advance Directives occurred with: Not Discussed Does the patient have a Living Will? No Does the patient have Health Care Power of Attor abilio? No Care Teams Singeing Torch Operator Relationship Specialty Start Date End Date Otilio Rajan DO [address] [place] [address] PCP - General Internal Medicine 01/03/24 documented as of this encounter
--- OUTSIDE RECORDS SUMMARY | 2024-01-18 16:28 | External Medical Summary | Summary of Care ---
Author Name Unknown Organization [facility] Address [address] [facility] [place] [address] Phone [phone] Care Team Providers Care Operating Room Nurse Name Role Phone Otilio Rajan DO Primary Care Provider Encounter Details Date Type Department Care Team (Late st Contact Info) Description 01/06/2024 Orders Only Family Practice [address] [place] [address] [place] [phone] Otilio Rajan DO [address] [place] [address] Allergies Active Allergy Reactions Criticality Noted Date [...] (Prevnar) 02/15/2017 Pneumococcal Conjugate Vacci ne, 20-valent ([id number]) 09/07/2022 Pneumococcal Polysaccharide PPV23 (Pneumovax) 12/01/2015 Seasonal [...] 8:00 AM EST Office Visit Family Practice [address] [place] [address] [address] [place] [address] Otilio Rajan, DO [address] [place] [address] 05/01/2024 8:00 AM EST Office Visit Rheumatology [facility] [address] [place] [address] Khoa Carlson MD [email or web address] [address] Health Maintenance Due Date Last Done Comments [...] Procedure Name Priority Date/Time Associated Diagnosis Comments COLONOSCOPY, OUTSIDE PROCEDURE Routine 11/26/2023 documented in this encounter Results * COLONOSCOPY, OUTSIDE PROCEDURE (11/26/2023) 11/26/2023 Rika Coello PA-C GASTRO LOWER [facility] Organization Address City/State/ZIP Co de Phone Number OUTSIDE LAB (SEE SCANNED REPORT) documented in this encounter Advance Directives * Full Code (Latest Code Status on File) Date Activated Date Inactivated Comments 03/12/2016 1:14 AM 03/15/2016 4:46 PM Question Answer Comments Discussion of Advance Directives occurred with: Not Discussed Does the patient have a Living Will? No Does the patient have Health Care Power of Attor abilio? No Care Teams Operating Room Nurse Relationship Specialty Start Date End Date Otilio Rajan DO [address] [place] [address] PCP - General Internal Medicine 01/03/24 documented as of this encounter
--- OUTSIDE RECORDS SUMMARY | 2024-01-18 16:28 | External Medical Summary | Summary of Care ---
Author Name Unknown Organization [facility] Address [address] [facility] [place] [address] Phone [phone] Care Team Providers Care Chlorine Plant Operator Name Role Phone Otilio Rajan DO Primary Care Provider [phone] Encounter Details Date Type Department Care Team (Late st Contact Info) Description 11/26/2023 Result Scan Unspecified Department Otilio Rajan DO [address] [place] [facility] [id number] <No scans attached> Allergies Active Allergy Reactions [...] a week. 78 Tablet 1 11/18/2023 Active documented as of this encounter (statuses [...] (Prevnar) 02/15/2017 Pneumococcal Conjugate Vacci ne, 20-valent ([id number]) 09/07/2022 Pneumococcal Polysaccharide PPV23 (Pneumovax) 12/01/2015 Seasonal [...] 8:00 AM EST Office Visit Family Practice [address] [place] [address] [address] [place] [address] Otilio Rajan, DO [address] [place] [address] 05/01/2024 8:00 AM EST Office Visit Rheumatology [facility] [address] [place] [address] Khoa Carlson MD [address] [place], [place] [address] Health Maintenance Due Date Last Done Comments Depression Screening 1962 Hepatitis C Screening 01/28/1970 Cologuard 01/28/1997 Colonoscopy 01/28/1997 11/26/2023 Sigmoidoscopy 01/28/1997 Adult Wellness Visit 01/28/2018 Zoster Vaccines (2 of 2) 11/20/2019 09/25/2019, 03/2 07/2012 *BASELINE EKG FOR HTN 04/10/2021 Colorectal Cancer Screening 01/19/2022 Fecal Occult Blood Test 01/19/2022 01/19/2021 COVID-19 Vaccine ( season) 2023 03/07/2021, 09/05/2020, 08/05/2020 GFR 09/02/2024 12/31/2023, 06/0 07/2023, 08/31/2022, Additional history exists HbA1c 09/02/2024 09/03/2023, 08/31/2022 Albumin/Creatinine Ratio 08/31/2025 08/31/2022 Lipid Panel 09/02/2028 09/03/2023, 06/0 05/2022, 08/08/2020 DTap/Tdap Vaccines (6 - Td [...] Procedure Name Priority Date/Time Associated Diagnosis Comments PATHOLOGY SCANNED RESULT 11/26/2023 documented in this encounter Results * PATHOLOGY SCANNED RESULT (11/26/2023) 11/26/2023 Otilio Rajan DO PATHOLOGY documented in this encounter Advance Directives * Full Code (Latest Code Status on File) Date Activated Date Inactivated Comments 03/12/2016 1:14 AM 03/15/2016 4:46 PM Question Answer Comments Discussion of Advance Directives occurred with: Not Discussed Does the patient have a Living Will? No Does the patient have Health Care Power of Attor abilio? No Care Teams Chlorine Plant Operator Relationship Specialty Start Date End Date Otilio Rajan DO [address] [place] [address] PCP - General Internal Medicine 01/03/24 documented as of this encounter
--- OUTSIDE RECORDS SUMMARY | 2024-01-18 16:28 | External Medical Summary | Summary of Care ---
Author Name Unknown Organization [facility] Address [address] [facility] [place] [address] Phone [phone] Care Team Providers Care Channel Development Manager Name Role Phone Otilio Rajan DO Primary Care Provider [phone] Reason for Visit * Reason Comments NEW PATIENT Pt here for NPOV Encounter Details Date Type Department Care Team (Latest Contact Info) Description 01/03/2024 8:00 AM EDT Office Visit Family Practice 65 [facility], [place] [address] [place] [address] Otilio Rajan DO [address] [place] [address] Paroxysmal atrial fibrillation (HCC)*; HTN, goal below [...] (Prevnar) 02/15/2017 Pneumococcal Conjugate Vacci ne, 20-valent ([id number]) 09/07/2022 Pneumococcal Polysaccharide PPV23 (Pneumovax) 12/01/2015 Seasonal [...] pathway between the bedroom and the bathroom [employer] Patient Education Copyright 2008 - 2010 [employer] except where otherwise noted Preventing Falls: Exercises [...] that mean climbing, even on a stepstool. [employer] Patient Education Copyright 2008 - 2010 [employer] except where otherwise noted. Treating Urinary Incontinence [...] is scheduled for right shoulder replacement at [facility]. No chest pain or shortness of breath are present. Chronic back pain and multiple joint pains are present at all times. He follows with Orthopedics at [facility], and Pain Management at the [facility]. Weight is stable and appetite is [...] performed by Ryan Lugo MD at OR 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 | Check-out note: Records release [facility] and [facility]. Ellis [facility] Otilio Rajan DO 2:43 PM 01/03/2024 documented in this encounter Nursing Notes * Elvie Perez, D[place] - 01/03/2024 8:27 AM EDT Chief Complaint Patient presents with NEW PATIENT Pt here for NPOV Would like vaccines today documented in this encounter Plan of Treatment Upcoming Encounters Date Type Department Care Team (Late st Contact Info) Description 04/09/2024 8:00 AM EST Office Visit Family Practice [address] [place] [address] 293 [place] [address] Otilio Rajan, [address] [place] [address] 05/01/2024 8:00 AM EST Office Visit Rheumatology [place] [place] [address] Khao Carlson MD [address] [place] [address] Health Maintenance Due Date Last Done Comments Depression Screening 1962 Hepatitis C Screening 01/28/1970 Cologuard 01/28/1997 Colonoscopy 01/28/1997 Sigmoidoscopy 01/28/1997 Adult Wellness Visit 01/28/2018 Zoster Vaccines (2 of 2) 11/20/2019 09/25/2019, 05/31 *BASELINE EKG FOR HTN 04/10/2021 Colorectal Cancer Screening 01/19/2022 Fecal Occult Blood Test 01/19/2022 01/19/2021 COVID-19 Vaccine ( season) 2023 03/07/2021, 09/05/2020, 08/05/2020 GFR 09/02/2024 09/03/2023, 05/2022, 08/08/2020, Additional history exists Albumin/Creatinine Ratio [...] Power of Attor abilio? No Care Teams Channel Development Manager Relationship Specialty Start Date End Date Otilio Rajan DO [address] [place] [address] PCP - General Internal Medicine 01/03/24 documented as of this encounter
--- OUTSIDE RECORDS SUMMARY | 2024-01-18 16:28 | External Medical Summary | Summary of Care ---
Author Name Unknown Organization [facility] Address [address] [facility] [place] [address] Phone [phone] Care Team Providers Care Manufacturing Coordinator Name Role Phone Otilio Rajan DO Primary Care Provider [phone] Encounter Details Date Type Department Care Team (Late st Contact Info) Description 12/31/2023 Result Scan Unspecified Department <No scans attached> Allergies Active Allergy Reactions Criticality Noted Date Comments Doxycycline Rash Low 07/03/2016 Gabapentin Medium 07/04/2023 Other Reaction(s): Dizziness Lisinopril Cough Low 03/01/2022 documented as of this encounter (statuses as of 01/17/2024) Medications Medication Sig Dispensed Refills Start Date [...] as of this encounter (statuses as of 01/17/2024) Active Problems Problem Noted Date Diagnosed Date [...] as of this encounter (statuses as of 01/17/2024) Resolved Problems Problem Noted Date Diagnosed Date Resolved Date Acute appendicitis 03/12/2016 6 HTN, goal to be determined 1 04/23/2008 Overview: Modified per HTN protocol #16. documented as of this encounter (statuses as of 01/17/2024) Immunizations Name Administration Dates Next Due COVID-19 mRNA, LNP-s, No Pre serve, 2-Dose Series (Moderna) 03/07/2021,09/05/2020,08/05/2020 DTaP Dipth/Tet/Acell Pertussis (Infanrix), Peds 04/01/1988 H1N1 2009 Influenza, IM 03/07/2009 Pneumococcal Conjugate Vacc, 13 Valent (Prevnar) 02/15/2017 Pneumococcal Conjugate Vacci ne, 20-valent ([id number]) 09/07/2022 Pneumococcal Polysaccharide PPV23 (Pneumovax) 12/01/2015 Seasonal [...] 8:00 AM EST Office Visit Family Practice [address] [place] [address] [address] [place] [address] Otilio Rajan, [address] [place] [address] 05/01/2024 8:00 AM EST Office Visit Rheumatology [facility] [address] [place] [address] Khoa Carlson MD [address] [place] [address] Health Maintenance Due Date Last Done Comments Depression Screening 1962 Hepatitis C Screening 01/28/1970 Cologuard 01/28/1997 Sigmoidoscopy 01/28/1997 Adult Wellness Visit 01/28/2018 Zoster Vaccines (2 of 2) 11/20/2019 09/25/2019, 03/07/2012 *BASELINE EKG FOR HTN 04/10/2021 Fecal Occult Blood Test 01/19/2022 01/19/2021 COVID-19 Vaccine ( season) 2023 03/07/2021, 09/05/2020, 08/05/2020 HbA1c 09/02/2024 09/03/2023, 08/31/2022 GFR 12/30/2024 12/31/2023, 06/0 07/2023, 08/31/2022, Additional history exists Albumin/Creatinine Ratio [...] Procedure Name Priority Date/Time Associated Diagnosis Comments EKG SCANNED RESULT 12/31/2023 documented in this encounter Results * EKG SCANNED RESULT (12/31/2023) 12/31/2023 No Physician Data Unknown EKG documented in this encounter Advance Directives * Full Code (Latest Code Status on File) Date Activated Date Inactivated Comments 03/12/2016 1:14 AM 03/15/2016 4:46 PM Question Answer Comments Discussion of Advance Directives occurred with: Not Discussed Does the patient have a Living Will? No Does the patient have Health Care Power of Attor abilio? No Care Teams Manufacturing Coordinator Relationship Specialty Start Date End Date Otilio Rajan DO [address] [place] [address] PCP - General Internal Medicine 01/03/24 documented as of this encounter
--- NOTE | 2024-01-18 17:20 | Emergency Department Note ---
History of Present Illness General Chief complaint: Trauma Stated complaint: FALL, R ANKLE PAIN Time Seen by Provider: 01/18/24 16:43 History of Present Illness Provider complaint: Syncope right ankle pain Onset (ago): hour(s) 2 Maximum Pain Intensity: 4 73-year-old male on Xarelto presents emergency department for syncope and right ankle pain. Patient states approximate 2 hours ago he was chopping wood then felt very dizzy and folic he was getting hot. Patient states he tried to sit down but then passed out. Patient states he did hit his head. He is reporting neck pain. He is also reporting pain in his right ankle. Home Medications Medication Instructions Recorded Confirmed Type amlodipine 10 mg tablet 10 mg PO QAM 01/30/18 12/18/23 History atorvastatin 80 mg tablet 80 mg PO HS 01/30/18 12/18/23 History calcium polycarbophil 625 mg 0 mg PO BID 01/30/18 12/18/23 History tablet (Fiber Laxative (calcium polycarbophil)) metoprolol tartrate 50 mg tablet 50 mg PO BID 01/30/18 12/18/23 History morphine 15 mg tablet,oral ONLY 15 mg PO QAM 01/30/18 12/18/23 History (not feeding tubes) terazosin 10 mg capsule 10 mg PO HS 01/30/18 12/18/23 History cholecalciferol (vitamin D3) 50 2,000 unit PO HS 03/10/19 12/18/23 History mcg (2,000 unit) tablet (Vitamin D3) docusate sodium 100 mg tablet 100 mg PO BID 03/10/19 12/18/23 History (Stool Softener) folic acid 1 mg tablet 1 mg PO QAM 03/10/19 12/18/23 History menthol 4 % topical gel (Biofreeze 1 applic topical UD PRN Pain 03/10/19 12/18/23 History (menthol)) sennosides 8.6 mg tablet (Senokot) 8.6 mg PO BID 03/10/19 12/18/23 History fyajishhput-rxzxmpdgx-xox C-Mn 500 1 cap PO BID 03/23/20 12/18/23 History mg-400 mg capsule hydrocodone 7.5 mg-acetaminophen 2 tab PO BID PRN Pain 03/23/20 12/18/23 History 325 mg tablet potassium chloride 20 mEq 20 meq PO BID 03/23/20 12/18/23 History tablet,extended release cyanocobalamin (vitamin B-12) 1,000 mcg PO QAM 07/20/20 12/18/23 History 1,000 mcg tablet celecoxib 100 mg capsule (Celebrex) 100 mg PO BID 01/27/21 12/18/23 History rivaroxaban 20 mg tablet (Xarelto) 20 mg PO QAM 01/27/21 12/18/23 History acyclovir 200 mg capsule 200 mg PO BID 02/15/21 12/18/23 History methotrexate sodium 2.5 mg tablet 15 mg PO WK 02/15/21 12/18/23 History diclofenac sodium 1 % topical gel 4 g topical QID PRN Pain 05/21/22 12/18/23 History naloxone 4 mg/actuation nasal spray 4 mg intranasal DIRECTED PRN 05/21/22 12/18/23 History Other fluticasone propionate 50 2 spray intranasal DAILY #15.8 03/18/23 12/18/23 Rx mcg/actuation nasal grams spray,suspension pantoprazole 40 mg tablet,delayed 40 mg PO QAM 05/13/23 12/18/23 History release testosterone (AndroGel) 2 pump topical DAILY #150 grams 08/23/23 12/18/23 Rx Allergies Allergy/AdvReac Type Severity Reaction Status Date / Time doxycycline Allergy Mild Rash Verified 12/18/23 09:45 lisinopril AdvReac Mild Dry cough Verified 12/18/23 09:45 Past Med/Surg History Problem List (Updated 01/18/24 @ 18:58 by Julina Lei MD) Closed fibular fracture (Acute) CHI (closed head injury) (Acute) SALLY (acute kidney injury) (Acute) Syncope (Acute) Vocal process granuloma Chronic allergic rhinitis Chronic sinusitis, unspecified Hypertrophy of both inferior nasal turbinates Hypogonadism in male Encounter for pre-operative examination Achilles tendon contracture, left BPH (benign prostatic hyperplasia) GERD (gastroesophageal reflux disease) Hypertension (Chronic) Hyperlipidemia Medical History Hypogonadism in male Hx of colonic polyps Chronic allergic rhinitis Prediabetes Diet control BPH (benign prostatic hyperplasia) Pinched nerve in neck Iron excess Dx 2020, hx multiple phlebotomies History of diverticulitis (2018) sigmoidectomy 2018 Vocal process granuloma Degenerative disc disease, lumbar GERD (gastroesophageal reflux disease) Cervical disc disease "Mild" ROM limitations Atrial fibrillation Taking Xarelto/beta ari Hearing deficit Hearing aids Rheumatoid arthritis on MTX Osteoarthritis Chronic back pain Sleep apnea CPAP (compliant) Hyperlipidemia Hypertension Surgical History Hx of colonoscopy with polypectomy Colonoscopy 11/26/23: MAC at [facility] History of arthroscopy of right shoulder Per records Hx of bilateral cataract extraction History of bilateral knee replacement History of carpal tunnel release of both wrists History of endoscopy History of colon resection x2 Sigmoidectomy - for diverticulitis 2018 History of left shoulder replacement Left TSA (06/10/23): LMA#5 (iGel) + regional at [facility] History of sinus surgery Image guinded B/L ESS 09/12/22: Grade 1 view, MAC#3, ETT 7.5 at [facility] H/O nasal septoplasty History of cardioversion (06/2020) [facility] Status post surgery left bicep tendon repair S/P trigger finger release right middle/ring finger Status post surgery Right ankle surgery S/P ankle joint replacement Left 05/01/2019: Grade 1 view, MAC #3, ETT#8, atraumatic x 1 +PNB Hx of tooth extraction History of metal removed from eye welding injury, most recent 2014 History of appendectomy Family History Father Lung cancer Mother Cervical cancer Family history of diabetes mellitus Other Heart disease Hypertension No family history of adverse response to anesthesia No pertinent family history Social History Smoking Status: Never smoker Second Hand Exposure: No; Do You Dip or Chew Tobacco: No; Hx Alcohol Use: Yes Alcohol type: beer Alcohol Intake Frequency: Monthly or Less Alcohol Intake Frequency Comment: very little Hx Substance Use: Yes Last Used Substance Other:: nothing for 25-30 years Substance Use Type Other:: previous marijuana Preferred Language: Mosotho Communication Ability: Effective Hearing Ability: Hard of Hearing 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 Engineer Required: No Beliefs That Will Affect Care: None marital status: Single Current Living Situation: Alone Feels Safe at Home: Yes Assistive Devices: CPAP, Denture - Upper, Glasses and Hearing Aid - Bilateral Physical Exam Vital Signs Vital Signs - 24 hr 01/18/24 16:35 01/18/24 17:00 01/18/24 17:00 Temperature 36.8 C Temperature Source Temporal Artery Scan Pulse Rate 98 H 78 Pulse Rate [Finger] 86 Pulse Rhythm Irregular Pulse Rhythm [Finger] Regular Pulse Strength [Finger] Normal Respiratory Rate 16 18 18 Respiratory Effort / Characteristics Non-Labored Spontaneous Non-Labored Spontaneous Respiratory Depth Normal Normal Blood Pressure 110/75 Blood Pressure [Left Arm] 104/68 Blood Pressure Mean 86 Blood Pressure Mean [Left Arm] 80 Blood Pressure Position Sitting Blood Pressure Position [Left Arm] Lying Pulse Oximetry 98 95 95 Oxygen Delivery Method Room Air Room Air Room Air Sepsis Recent Fever Within 48 Hours No Sepsis New/Unexplained Change in Mental Status N/A Sepsis Action Taken by Nursing No Action Required 01/18/24 17:08 01/18/24 17:16 01/18/24 17:16 Temperature Temperature Source Pulse Rate 93 H 84 Pulse Rate [Finger] 79 Pulse Rhythm Pulse Rhythm [Finger] Pulse Strength [Finger] Respiratory Rate 18 18 Respiratory Effort / Characteristics Non-Labored Spontaneous Respiratory Depth Normal Blood Pressure 104/68 Blood Pressure [Left Arm] 104/68 Blood Pressure Mean Blood Pressure Mean [Left Arm] 80 Blood Pressure Position Blood Pressure Position [Left Arm] Lying Pulse Oximetry 96 98 Oxygen Delivery Method Room Air Room Air Sepsis Recent Fever Within 48 Hours Sepsis New/Unexplained Change in Mental Status Sepsis Action Taken by Nursing 01/18/24 18:17 Temperature Temperature Source Pulse Rate Pulse Rate [Finger] 91 H Pulse Rhythm Pulse Rhythm [Finger] Pulse Strength [Finger] Respiratory Rate 18 Respiratory Effort / Characteristics Non-Labored Spontaneous Respiratory Depth Normal Blood Pressure Blood Pressure [Left Arm] 118/71 Blood Pressure Mean Blood Pressure Mean [Left Arm] 86 Blood Pressure Position Blood Pressure Position [Left Arm] Lying Pulse Oximetry 97 Oxygen Delivery Method Room Air Sepsis Recent Fever Within 48 Hours Sepsis New/Unexplained Change in Mental Status Sepsis Action Taken by Nursing Physical Exam HENT: Exam performed. - Head: Normocephalic and atraumatic. - Right Ear: External ear normal. No mastoid erythema - Left Ear: External ear normal. No mastoid erythema - Mouth/Throat: The oropharynx is clear and moist. No trismus in the jaw. No dental abscesses or uvula swelling. No oropharyngeal exudate or tonsillar abscesses. EYES: Conjunctivae and EOM are normal. Pupils are equal, round, and reactive to light. Right eye exhibits no discharge. Left eye exhibits no discharge. No scleral icterus. NECK: Normal range of motion. Neck supple. No JVD present. No spinous process tenderness present CV: Normal rate, irregular rhythm, normal heart sounds and intact distal pulses. There is no peripheral edema. Palpable radial pulses bue. PULM/CHEST: Effort normal and breath sounds normal. No respiratory distress. No stridor. He has no wheezes. He has no rales. - Chest Wall: He exhibits no tenderness. No crepitus bilaterally. ABD: The abdomen is soft. There is no tenderness. There is no rebound, no guarding. MUSC/SKEL: No C, T, or L-spine tenderness. Pelvis stable Right lower extremity: Pain on palpation of the right lateral malleolus and fibular head. Compartments of lower extremity are soft. Palpable DP and PT pulses. Left lower extremity: Within normal limits. NEURO: Motor and sensation grossly intact. SKIN: Skin is warm and dry. He is not diaphoretic. PSYCH: He has a normal mood and affect. Behavior is normal. Judgment and thought content normal. Course Course 164: The patient was evaluated in room A9. A complete history and physical exam was performed Cardiac monitoring: An order was placed for continuous cardiac monitoring. The monitor shows a rate of 90 with atrial fibrilation rhythm interpreted by me Trauma alert was activated. 1851: Vital signs stable. Imaging shows right fibular fracture. Labs are significant for creatinine 1.6. Patient will be admitted to medicine given his SALLY and exertional syncope. Patient's right lower extremity was placed in splint and patient will be followed by orthopedics. Dr. Pardo aware of the patient. After splint was placed the patient's capillary refill is less than 2 seconds. Administered Medications Sodium Chloride (Nss) 1,000 mls @ 999 mls/hr IV .Q1H1M ONE Stop: 01/18/24 19:04 Last Admin: 01/18/24 18:12 Dose: 999 mls/hr Documented By: MARY ANN Critical Care Time Critical Care Time: Yes Total Critical Care Time: 56 I have personally spent greater than 56 minutes of critical care time in the direct management of this patient. This includes bedside care, interpretation of diagnostic studies, and testing, discussion with consultants, patient, and family members, and other required patient management activities. This 56 minutes is in excess of all separately billable procedures. Medical Decision Making Laboratory Data Attestation: I reviewed the patient's lab results. Chest x-ray: Chest x-ray negative. Airway clear. No pneumothorax. No consolidation. No cardiomegaly or cephalization.. No free air under the diaphragm. No fractures of the skeletal structures. Right ankle: No acute fracture Right tib-fib: Fibular fracture Pelvis x-ray: No acute fracture or dislocation 01/18/24 17:04 01/18/24 17:04 Lab Results 01/18/24 01/18/24 Range/Units 17:04 17:16 WBC 9.32 (4.8-10.8) K/ul RBC 4.83 (4.70-6.10) M/uL Hgb 15.1 (14.0-18.0) g/dl POC Hgb 16.0 (14.0-18.0) g/dl Hct 45.9 (42.0-52.0) % POC Hct 47 (42-52) % MCV 95.0 (80.0-100.0) fL MCH 31.3 (25.0-34.0) pg MCHC 32.9 (32.0-36.0) g/dL RDW Std Deviation 60.0 H (36.4-46.3) fL RDW Coeff of Liliana 17.4 H (11.5-14.5) % Plt Count 258 (130-400) K/uL MPV 9.8 (9.4-12.4) fL Immature Gran % (Auto) 0.3 % Neut % (Auto) 82.2 % Lymph % (Auto) 9.9 % Loving % (Auto) 6.9 % Eos % (Auto) 0.3 % Baso % (Auto) 0.4 % Neut # (Auto) 7.66 H (1.40-6.50) K/uL Lymph # (Auto) 0.92 L (1.20-3.40) K/uL Loving # (Auto) 0.64 H (0.11-0.59) K/uL Eos # (Auto) 0.03 (0.00-0.50) K/uL Baso # (Auto) 0.04 (0.00-0.20) K/uL Immature Gran # (Auto) 0.03 (0.01-0.20) K/uL Absolute Nucleated RBC 0.02 (0.00-0.12) K/uL Nucleated RBC % (auto) 0.2 % PT 12.7 H (9.0-12.0) Seconds INR 1.2 H (0.9-1.1) POC Sodium 140 (135-144) mmol/L Sodium 137 (136-145) mmol/L POC Potassium 4.5 (3.3-5.0) mmol/L Potassium 4.5 (3.5-5.1) mmol/L POC Chloride 102 (101-112) mmol/L Chloride 104 (98-107) mmol/L Carbon Dioxide 27 (21-32) mmol/L POC Total CO2 24 (24-31) mmol/L Anion Gap 6 (3-11) POC Anion Gap 19.0 (16-25) mmol/L POC BUN 25 H (7-18) mg/dl BUN 25 H (6-23) mg/dl Creatinine 1.60 H (0.6-1.4) mg/dl POC Creatinine 1.7 H (0.6-1.3) mg/dl Est Cr Clr Drug Dosing 45.9 ml/min eGFR 45.78 BUN/Creatinine Ratio 15.6 (10-20) Glucose 115 H (70-99(Fasting)) mg/dl POC Glucose (other) 117 H (70-99) mg/dl Calcium 9.6 (8.6-10.3) mg/dl POC Ioniz Calcium Garcia 1.25 (1.12-1.32) mmol/l Troponin I High Sens 4.9 (0-20) pg/ml Blood Type O Positive Antibody Screen NEGATIVE Imaging Data Attestation: I personally reviewed and interpreted this imaging study as follows: My Impression: Ankle x-ray: No acute fracture Tib-fib x-ray: Fibular fracture Pelvis x-ray: No acute fracture Chest x-ray: No acute fracture or pneumothorax Radiologist's Impression: Ankle X-Ray 01/18/24 16:35 XR ankle RT min 3V routine CLINICAL HISTORY: fall, pain TECHNIQUE: 2 views of the right ankle were obtained. Comparison: Comparison is made to tibia and fibular radiograph 01/18/2024 FINDINGS: No fractures are present. Orthopedic hardware in the metatarsals incidentally noted. Degenerative changes are seen. Soft tissue swelling is seen about the ankle. IMPRESSION: Soft tissue swelling is seen without evidence of underlying bony abnormality. ACT 112: Negative or not required by law. Electronically signed by: Luis Fernando Hancock M.D. 01/18/2024 5:58 PM Pelvis X-Ray 01/18/24 16:53 XR pelvis 1-2V routine CLINICAL HISTORY: trauma TECHNIQUE: A single frontal view of the pelvis was obtained. Comparison: Comparison is made to CT abdomen pelvis 01/07/2018 FINDINGS: There is no evidence of an acute fracture. Degenerative changes are seen in the hip joints and lumbar spine. No soft tissue abnormality is seen. IMPRESSION: Degenerative changes without evidence of acute abnormality. ACT 112: Negative or not required by law. Electronically signed by: Luis Fernando Hancock M.D. 01/18/2024 6:[address] 01/18/24 16:54 CT cervical spine wo con CLINICAL HISTORY: Trauma TECHNIQUE: Multidetector row helical CT of the cervical spine was performed without administration of intravenous contrast. Coronal and sagittal reformations were obtained. Automated dose lowering techniques and/or adjustment according to patient size were utilized for this exam. Comparison: None available at the time of this dictation. FINDINGS: No acute fractures or subluxations are identified. Degenerative changes are seen in the visualized spine. The alignment is normal. Soft tissues are unremarkable. IMPRESSION: Degenerative changes without evidence of acute bony injury. ACT 112: Negative or not required by law. Electronically signed by: Luis Fernando Hancock M.D. 01/18/2024 5:37 PM Chest X-Ray 01/18/24 16:54 XR chest 1V portable CLINICAL HISTORY: trauma TECHNIQUE: Single frontal radiograph of the chest was obtained. Comparison: Comparison is made to chest radiograph 05/16/2023 FINDINGS: Left shoulder arthroplasty is seen. The cardiomediastinal silhouette is normal. The lungs are clear. No evidence of pleural effusion or pneumothorax. IMPRESSION: No acute chest disease. ACT 112: Negative or not required by law. Electronically signed by: Luis Fernando Hancock M.D. 01/18/2024 5:[address] 01/18/24 16:54 CT facial bones wo con CLINICAL HISTORY: Trauma TECHNIQUE: Multidetector row helical CT of the maxillofacial bones was performed without administration of intravenous contrast, and processed with bone and soft tissue algorithms. Coronal and sagittal reformations were obtained. Automated dose lowering techniques and/or adjustment according to patient size were utilized for this exam. Comparison: None available at the time of this dictation. FINDINGS: Nasal bones are normal. The mandible is intact. The temporomandibular joints are anatomically aligned. Pterygoid plates are intact. Zygomatic arches are intact. Minimal soft tissue swelling is seen over the left maxillary region. The globes are normal and symmetric, without proptosis, obvious disruption or lens dislocation. There is no orbital radiopaque foreign body. The orbital lindsey are intact. The retrobulbar fat is without evidence of disruption. Extraocular muscles are normal and symmetric. Optic nerve sheath complexes are normal in course and caliber. Imaged portions of the paranasal sinuses and mastoid air cells are clear. Postsurgical changes are noted in the bilateral maxillary sinuses. IMPRESSION: No acute fractures. Left maxillary soft tissue swelling is seen. ACT 112: Negative or not required by law. Electronically signed by: Luis Fernando Hancock M.D. 01/18/2024 5:[address] 01/18/24 16:54 CT head/brain wo con CLINICAL HISTORY: Trauma Technique: Contiguous axial CT images of the head were acquired from the base of the skull to the vertex without intravenous contrast administration. Images were viewed in brain, subdural and bone windows. Automated dose lowering techniques and/or adjustment according to patient size were utilized for this exam. Comparison: None available at the time of this dictation. Findings: The ventricles, basal cisterns, and cerebral sulci are normal. There is no acute intracranial hemorrhage or evidence of acute territorial infarction. Neither mass effect, shift of the midline structures, nor abnormal extra-axial fluid collections are shown. Imaged portions of the paranasal sinuses and mastoid air cells are clear. The orbits appear normal. There are no acute fractures of the calvaria or scalp swelling. Impression: No acute intracranial hemorrhage, no evidence of acute territorial infarction or other acute intracranial disease process. ACT 112: Negative or not required by law. Electronically signed by: Luis Fernando Hancock M.D. 01/18/2024 5:36 PM Tibia/Fibula X-Ray 01/18/24 16:54 XR tibia fibula RT 2V CLINICAL HISTORY: trauma TECHNIQUE: 2 radiographic views of the right leg were obtained. Comparison: Comparison is made to abdomen radiograph 01/18/2024 FINDINGS: There is a fracture of the proximal fibular shaft. Total knee arthroplasty is seen. Soft tissue swelling is seen. IMPRESSION: Fracture of the proximal fibular shaft with associated soft tissue swelling. ACT 112: Negative or not required by law. Electronically signed by: Luis Fernando Hancock M.D. 01/18/2024 6:04 PM Abdomen/Pelvis CT 01/18/24 17:18 CT abd pelvis wo con CLINICAL HISTORY: trauma TECHNIQUE: Helical axial images of the abdomen and pelvis were obtained. Automated dose lowering techniques and/or adjustment according to patient size were utilized for this exam. This exam was performed without intravenous contrast. COMPARISON: Comparison is made to 01/07/2018 FINDINGS: Lower chest: No acute abnormality. Liver: Unremarkable. No focal lesions are seen. Gallbladder and biliary tree: Cholelithiasis is seen without evidence of cholecystitis. No intra- or extrahepatic biliary ductal dilation. Pancreas: Unremarkable, no focal lesions. Spleen: Unremarkable. Adrenals: Unremarkable. Kidneys and ureters: Nonobstructive nephrolithiasis is seen. Bladder: Unremarkable. Reproductive organs: Prostatic calcifications are seen which may represent prior hemorrhage or granulomatous disease. Bowel: Diverticulosis is seen without evidence of diverticulitis. Post surgical changes of appendectomy are seen. Lymph nodes Retroperitoneal: Unremarkable. Pelvic: Unremarkable. Mesenteric: Unremarkable. Peritoneum: Unremarkable. Vessels: Atherosclerotic calcifications are seen. Abdominal wall: A fat-containing umbilical hernia is seen. Fat-containing right inguinal hernia is seen. Bones: Degenerative changes in the visualized spine. IMPRESSION: 1. No acute abnormalities in particular no evidence of acute fracture. 2. Diverticulosis without diverticulitis. ACT 112: Negative or not required by law. Electronically signed by: Luis Fernando Hancock M.D. 01/18/2024 5:47 PM ECG Data Attestation: I personally reviewed and interpreted this ECG as follows: Rate (beats per minute): 89 Rhythm: + atrial fibrillation ECG Intervals/blocks: + Normal QRS and + Normal QT-c ECG ST segments: + Normal ST segments MDM Narrative 1643: The patient was evaluated in room A9. A complete history and physical exam was performed Cardiac monitoring: An order was placed for continuous cardiac monitoring. The monitor shows a rate of 90 with atrial fibrilation rhythm interpreted by me Trauma alert was activated. 1852: Vital signs stable. Imaging shows right fibular fracture. Labs are significant for creatinine 1.6. Patient will be admitted to medicine given his SALLY and exertional syncope. Patient's right lower extremity was placed in splint and patient will be followed by orthopedics. Dr. Pardo aware of the patient. After splint was placed the patient's capillary refill is less than 2 seconds. Impression & Plan Syncope, SALLY (acute kidney injury), CHI (closed head injury), Closed fibular fracture Discharge Plan Visit Data Chief Complaint: Trauma Stated Complaint: FALL, R ANKLE PAIN ED Provider: Julian Lei Discharge Problem: Syncope, SALLY (acute kidney injury), CHI (closed head injury), Closed fibular fracture Patient Disposition: Admitted As Inpatient Forms Stand Alone Forms: [facility] Prescriptions Prescriptions: No Action testosterone [AndroGel] 20.25 mg/1.25 gram (1.62 %) gel in metered-dose pump 2 pump topical DAILY Qty: 150 3RF Rx Instructions: apply 1 pump amount over max area of each upper arm and shoulder fluticasone propionate 50 mcg/actuation spray,suspension 2 spray intranasal DAILY Qty: 15.8 2RF Rx Instructions: administer into each nostril amlodipine 10 mg Tablet 10 mg PO QAM atorvastatin 80 mg Tablet 80 mg PO HS metoprolol tartrate 50 mg Tablet 50 mg PO BID morphine 15 mg Tablet,Oral Only,Ext.Rel.12 Hr 15 mg PO QAM Rx Instructions: take on tab po daily for pain (next fill due 04/19/20) calcium polycarbophil [Fiber Laxative (ca polycarbo)] 625 mg Tablet 0 mg PO BID Rx Instructions: strength not listed terazosin 10 mg Capsule 10 mg PO HS hydrocodone-acetaminophen 7.5-325 mg Tablet 2 tab PO BID PRN (Reason: Pain) [id number] C-Mn 500-400 mg Capsule 1 cap PO BID potassium chloride 20 mEq Tablet Extended Release 20 meq PO BID Rx Instructions: take w/ food Biofreeze (menthol) 4 % Gel 1 applic TOPICAL UD PRN (Reason: Pain) folic acid 1 mg Tablet 1 mg PO QAM docusate sodium [Stool Softener] 100 mg Tablet 100 mg PO BID cholecalciferol (vitamin D3) [Vitamin D3] 2,000 unit Tablet 2,000 unit PO HS sennosides [Senokot] 8.6 mg Tablet 8.6 mg PO BID methotrexate sodium 2.5 mg tablet 15 mg PO WK Patient Comments: saturday Rx Instructions: MONDAYS cyanocobalamin (vitamin B-12) 1,000 mcg Tablet 1,000 mcg PO QAM acyclovir 200 mg capsule 200 mg PO BID celecoxib [Celebrex] 100 mg Capsule 100 mg PO BID Xarelto 20 mg Tablet 20 mg PO QAM diclofenac sodium 1 % Gel 4 g TOPICAL QID PRN (Reason: Pain) Rx Instructions: apply to single knee, ankle, foot; for foot includes sole/toes/top of foot naloxone 4 mg/actuation [place],Non-Aerosol 4 mg INTRANASAL DIRECTED PRN (Reason: Other) Patient Comments: never had to use pantoprazole 40 mg tablet,delayed release (DR/EC) 40 mg PO QAM Referrals Referrals: Rika Coello, LOIDA [Primary Care Provider] - Discharge Problem: Syncope Qualifiers: Syncope type: unspecified Qualified Code(s): R55 - Syncope and collapse CHI (closed head injury) Qualifiers: Encounter type: initial encounter Qualified Code(s): S09.90XA - Unspecified injury of head, initial encounter Closed fibular fracture Qualifiers: Encounter type: initial encounter Fracture morphology: unspecified fracture morphology Laterality: unspecified laterality
[2024-01-18 17:28] LABS: iSTAT Creatinine 1.7 mg/dl (0.6-1.3); iSTAT Ionized Calcium 1.25 mmol/l (1.12-1.32); iSTAT Potassium 4.5 mmol/L (3.3-5.0)
--- NOTE | 2024-01-18 17:38 | CT Scan Report ---
CT head/brain wo con CLINICAL HISTORY: Trauma Technique: Contiguous axial CT images of the head were acquired from the base of the skull to the john kaleb without intravenous contrast administration. Images were viewed in brain, subdural and bone [facility] . Automated dose lowering techniques and/or adjustment according to patient size were utilized for this exam. Comparison: None available at the time of this dictation. Findings: The ventricles, basal cisterns, and cerebral sulci are normal. There is no acute intracranial hemorrh age or evidence of acute territorial infarction. Neither mass effect, shift of the midline structures , nor abnormal extra-axial fluid collections are shown. Imaged portions of the paranasal sinuses and mastoid air cells are clear. The orbits appear normal. There are no acute fractures of the calvaria or scalp swelling. Impression: No acute intracranial hemorrhage, no evidence of acute territorial infarction or other acute intracra nial disease process. ACT 112: Negative or not required by law. Electronically signed by: Luis Fernando Hancock M.D. 01/18/2024 5:36 PM
--- NOTE | 2024-01-18 17:39 | CT Scan Report ---
CT cervical spine wo con CLINICAL HISTORY: Trauma TECHNIQUE: Multidetector row helical CT of the cervical spine was performed without administration of intravenous contrast. Coronal and sagittal reformations were obtained. Automated dose lowering techn iques and/or adjustment according to patient size were utilized for this exam. Comparison: None available at the time of this dictation. FINDINGS: No acute fractures or subluxations are identified. Degenerative changes are seen in the visualized sp ine. The alignment is normal. Soft tissues are unremarkable. IMPRESSION: Degenerative changes without evidence of acute bony injury. ACT 112: Negative or not required by law. Electronically signed by: Luis Fernando Hancock M.D. 01/18/2024 5:37 PM
--- NOTE | 2024-01-18 17:40 | CT Scan Report ---
CT facial bones wo con CLINICAL HISTORY: Trauma TECHNIQUE: Multidetector row helical CT of the maxillofacial bones was performed without administrati on of intravenous contrast, and processed with bone and soft tissue algorithms. Coronal and sagittal reformations were obtained. Automated dose lowering techniques and/or adjustment according to patient size were utilized for this exam. Comparison: None available at the time of this dictation. FINDINGS: Nasal bones are normal. The mandible is intact. The temporomandibular joints are anatomically aligned . Pterygoid plates are intact. Zygomatic arches are intact. Minimal soft tissue swelling is seen ove r the left maxillary region. The globes are normal and symmetric, without proptosis, obvious disruption or lens dislocation. Ther e is no orbital radiopaque foreign body. The orbital lindsey are intact. The retrobulbar fat is without evidence of disruption. Extraocular muscles are normal and symmetric. Optic nerve sheath complexes are normal in course and caliber. Imaged portions of the paranasal sinuses and mastoid air cells are clear. Postsurgical changes are n oted in the bilateral maxillary sinuses. IMPRESSION: No acute fractures. Left maxillary soft tissue swelling is seen. ACT 112: Negative or not required by law. Electronically signed by: Luis Fernando Hancock M.D. 01/18/2024 5:39 PM
[2024-01-18 17:47] LABS: Basophils # (auto) 0.04 K/uL (0.00-0.20); Basophils % (auto) 0.4 %; Eosinophils # (auto) 0.03 K/uL (0.00-0.50); Eosinophils % (auto) 0.3 %; Hematocrit (blood only) 45.9 % (42.0-52.0); Hemoglobin 15.1 g/dl (14.0-18.0); Immature Granulocytes # (auto) 0.03 K/uL (0.01-0.20); Immature Granulocytes % (auto) 0.3 %; Lymphocytes # (auto) 0.92 K/uL (1.20-3.40); Lymphocytes % (auto) 9.9 %; Mean Corpuscular Hemoglobin 31.3 pg (25.0-34.0); Mean Corpuscular Hgb Conc 32.9 g/dL (32.0-36.0); Mean Platelet Volume 9.8 fL (9.4-12.4); Monocytes # (auto) 0.64 K/uL (0.11-0.59); Monocytes % (auto) 6.9 %; Neutrophils # (auto) 7.66 K/uL (1.40-6.50); Neutrophils % (auto) 82.2 %; Nucleated RBC # (auto) 0.02 K/uL (0.00-0.12); Nucleated RBC % (auto) 0.2 %; Platelet Count 258 K/uL (130-400); RDW Coefficient of Variation 17.4 % (11.5-14.5); Red Blood Count 4.83 M/uL (4.70-6.10); White Blood Count 9.32 K/ul (4.8-10.8)
--- NOTE | 2024-01-18 17:48 | CT Scan Report ---
CT abd pelvis wo con CLINICAL HISTORY: trauma TECHNIQUE: Helical axial images of the abdomen and pelvis were obtained. Automated dose lowering tech niques and/or adjustment according to patient size were utilized for this exam. This exam was perfor med without intravenous contrast. COMPARISON: Comparison is made to 01/07/2018 FINDINGS: Lower chest: No acute abnormality. Liver: Unremarkable. No focal lesions are seen. Gallbladder and biliary tree: Cholelithiasis is seen without evidence of cholecystitis. No intra- or extrahepatic biliary ductal dilation. Pancreas: Unremarkable, no focal lesions. Spleen: Unremarkable. Adrenals: Unremarkable. Kidneys and ureters: Nonobstructive nephrolithiasis is seen. Bladder: Unremarkable. Reproductive organs: Prostatic calcifications are seen which may represent prior hemorrhage or granul omatous disease. Bowel: Diverticulosis is seen without evidence of diverticulitis. Post surgical changes of appendecto my are seen. Lymph nodes Retroperitoneal: Unremarkable. Pelvic: Unremarkable. Mesenteric: Unremarkable. Peritoneum: Unremarkable. Vessels: Atherosclerotic calcifications are seen. Abdominal wall: A fat-containing umbilical hernia is seen. Fat-containing right inguinal hernia is se en. Bones: Degenerative changes in the visualized spine. IMPRESSION: 1. No acute abnormalities in particular no evidence of acute fracture. 2. Diverticulosis without diverticulitis. ACT 112: Negative or not required by law. Electronically signed by: Luis Fernando Hancock M.D. 01/18/2024 5:47 PM
--- NOTE | 2024-01-18 17:55 | XRay Report ---
XR chest 1V portable CLINICAL HISTORY: trauma TECHNIQUE: Single frontal radiograph of the chest was obtained. Comparison: Comparison is made to chest radiograph 05/16/2023 FINDINGS: Left shoulder arthroplasty is seen. The cardiomediastinal silhouette is normal. The lungs are clear. No evidence of pleural effusion or pneumothorax. IMPRESSION: No acute chest disease. ACT 112: Negative or not required by law. Electronically signed by: Luis Fernando Hancock M.D. 01/18/2024 5:53 PM
--- NOTE | 2024-01-18 17:59 | XRay Report ---
XR ankle RT min 3V routine CLINICAL HISTORY: fall, pain TECHNIQUE: 2 views of the right ankle were obtained. Comparison: Comparison is made to tibia and fibular radiograph 01/18/2024 FINDINGS: No fractures are present. Orthopedic hardware in the metatarsals incidentally noted. Degenerative tito nges are seen. Soft tissue swelling is seen about the ankle. IMPRESSION: Soft tissue swelling is seen without evidence of underlying bony abnormality. ACT 112: Negative or not required by law. Electronically signed by: Luis Fernando Hancock M.D. 01/18/2024 5:58 PM
[2024-01-18 18:03] LABS: BUN Creatinine Ratio 15.6 (10-20); Calcium 9.6 mg/dl (8.6-10.3); Creatinine Clr Calc Pharmacy 45.9 ml/min; Potassium 4.5 mmol/L (3.5-5.1)
--- NOTE | 2024-01-18 18:06 | XRay Report ---
XR tibia fibula RT 2V CLINICAL HISTORY: trauma TECHNIQUE: 2 radiographic views of the right leg were obtained. Comparison: Comparison is made to abdomen radiograph 01/18/2024 FINDINGS: There is a fracture of the proximal fibular shaft. Total knee arthroplasty is seen. Soft tissue swell ing is seen. IMPRESSION: Fracture of the proximal fibular shaft with associated soft tissue swelling. ACT 112: Negative or not required by law. Electronically signed by: Luis Fernando Hancock M.D. 01/18/2024 6:04 PM
[2024-01-18 18:10] LABS: Troponin I High Sensitivity 4.9 pg/ml (0-20)
[2024-01-18 18:11] LABS: INR 1.2 (0.9-1.1); Prothrombin Time 12.7 Seconds (9.0-12.0)
[2024-01-18] MEDS: SODIUM CHLORIDE 0.9% 1,000 ML IV ONE (18:12)
--- NOTE | 2024-01-18 18:50 | XRay Report ---
XR pelvis 1-2V routine CLINICAL HISTORY: trauma TECHNIQUE: A single frontal view of the pelvis was obtained. Comparison: Comparison is made to CT abdomen pelvis 01/07/2018 FINDINGS: There is no evidence of an acute fracture. Degenerative changes are seen in the hip joints and lumbar spine. No soft tissue abnormality is seen. IMPRESSION: Degenerative changes without evidence of acute abnormality. ACT 112: Negative or not required by law. Electronically signed by: Luis Fernando Hancock M.D. 01/18/2024 6:48 PM
[2024-01-18] MEDS ORDERED: ONDANSETRON INJ 2 MG/ML 2 ML VIAL IV PRN (19:35)
[2024-01-18] MEDS: ENOXAPARIN INJ 40 MG/0.4 ML SYR SQ SCH (20:08)
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
[2024-01-18 20:25] LABS: Appearance Urine Clear (Clear); Bilirubin Urine Negative (Negative); Blood Urine Negative (Negative); Color Urine Yellow; Glucose Urine UA Negative (Negative); Ketones Urine Negative (Negative); Leukocyte Esterase Urine Negative (Negative); Nitrite Urine Negative (Negative); Protein Urine Negative (Negative); Urobilinogen Urine Negative (Negative)
[2024-01-19] MEDS ORDERED: TROLAMINE SALICYLATE 10% CRM 255 APPLN/85 GM TUBE EXT PRN (00:57)
[2024-01-19] MEDS: ACETAMINOPHEN 325 MG TAB PO PRN (04:13)
[2024-01-19 05:25] LABS: Basophils # (auto) 0.03 K/uL (0.00-0.20); Basophils % (auto) 0.4 %; Eosinophils # (auto) 0.06 K/uL (0.00-0.50); Eosinophils % (auto) 0.8 %; Hematocrit (blood only) 40.4 % (42.0-52.0); Hemoglobin 13.5 g/dl (14.0-18.0); Immature Granulocytes # (auto) 0.02 K/uL (0.01-0.20); Immature Granulocytes % (auto) 0.3 %; Lymphocytes # (auto) 1.47 K/uL (1.20-3.40); Lymphocytes % (auto) 20.8 %; Mean Corpuscular Hgb Conc 33.4 g/dL (32.0-36.0); Mean Corpuscular Volume 92.9 fL (80.0-100.0); Mean Platelet Volume 9.7 fL (9.4-12.4); Monocytes % (auto) 12.7 %; Neutrophils # (auto) 4.59 K/uL (1.40-6.50); Nucleated RBC # (auto) 0.02 K/uL (0.00-0.12); Nucleated RBC % (auto) 0.3 %; Platelet Count 224 K/uL (130-400); RDW Coefficient of Variation 17.3 % (11.5-14.5); RDW Standard Deviation 58.5 fL (36.4-46.3); Red Blood Count 4.35 M/uL (4.70-6.10); White Blood Count 7.07 K/ul (4.8-10.8)
[2024-01-19 05:40] LABS: Albumin Globulin Ratio 1.8 (0.9-2); Albumin Level 3.9 gm/dl (3.4-5.0); BUN Creatinine Ratio 16.8 (10-20); Bilirubin,Total 0.9 mg/dl (0.2-1.0); Calcium 8.6 mg/dl (8.6-10.3); Creatinine Clr Calc Pharmacy 73.3 ml/min; Globulin 2.2 gm/dl (2.5-4.0); Magnesium 2.2 mg/dl (1.7-2.4); Potassium 3.8 mmol/L (3.5-5.1); Total Protein 6.1 gm/dl (6.0-8.3)
[2024-01-19 05:46] LABS: Troponin I High Sensitivity 4.7 pg/ml (0-20)
[2024-01-19 05:56] LABS: Thyroid Stimulating Hormone 0.551 uIu/ml (0.300-4.500)
--- NOTE | 2024-01-19 08:20 | Orthopedic Consultation ---
Date of Service January 19, 2024 Assessment & Plan (1) Closed right ankle fracture: Unfortunately, he has an equivalent ankle fracture. When he rolled his ankle the force went through the medial side up the syndesmosis and out the fibular shaft. This created some ligament instability around the ankle joint and the fracture of the fibula. He can be weightbearing as tolerated on his right leg in a cam walker boot but is pretty sore. Fortunately, we can treat this nonoperatively. We will likely have to postpone his shoulder surgery on Saturday. A cam walker boot has been ordered up to his room. History of Present Illness Reason for Consultation: Right fibular fracture Requesting Physician: . Attending Physician: Musa Nevarez MD Damaso is a pleasant 73-year-old male who is scheduled to have his right shoulder replaced in a week. He was splitting firewood yesterday when he overdid it some and had a significant hypotensive syncopal episode. He fell hard twisting his right ankle. He came to the emergency room and radiographs demonstrated a fibular fracture. He was placed in a splint and admitted to the medical service. Orthopedics was consulted to evaluate and treat.. Allergies Allergy/AdvReac Type Severity Reaction Status Date / Time doxycycline Allergy Mild Rash Verified 12/18/23 09:45 lisinopril AdvReac Mild Dry cough Verified 12/18/23 09:45 Home Medications Medication Instructions Recorded Confirmed Type amlodipine 10 mg tablet 10 mg PO QAM 01/30/18 01/18/24 History atorvastatin 80 mg tablet 80 mg PO HS 01/30/18 01/18/24 History calcium polycarbophil 625 mg 625 mg PO BID 01/30/18 01/18/24 History tablet (Fiber Laxative (calcium polycarbophil)) metoprolol tartrate 50 mg tablet 50 mg PO BID 01/30/18 01/18/24 History morphine 15 mg tablet,oral ONLY 15 mg PO QAM 01/30/18 01/18/24 History (not feeding tubes) terazosin 10 mg capsule 10 mg PO HS 01/30/18 01/18/24 History cholecalciferol (vitamin D3) 50 2,000 unit PO .ON HOLD 03/10/19 01/18/24 History mcg (2,000 unit) tablet (Vitamin D3) docusate sodium 100 mg tablet 100 mg PO BID 03/10/19 01/18/24 History (Stool Softener) folic acid 1 mg tablet 1 mg PO QAM 03/10/19 01/18/24 History menthol 4 % topical gel (Biofreeze 1 applic topical UD PRN Pain 03/10/19 01/18/24 History (menthol)) sennosides 8.6 mg tablet (Senokot) 8.6 mg PO BID 03/10/19 01/18/24 History roropftxelv-fvnywmcqp-rwq C-Mn 500 1 cap PO BID 03/23/20 01/18/24 History mg-400 mg capsule hydrocodone 7.5 mg-acetaminophen 2 tab PO BID PRN Pain 03/23/20 01/18/24 History 325 mg tablet potassium chloride 20 mEq 20 meq PO BID 03/23/20 01/18/24 History tablet,extended release cyanocobalamin (vitamin B-12) 1,000 mcg PO . ON HOLD 07/20/20 01/18/24 History 1,000 mcg tablet celecoxib 100 mg capsule (Celebrex) 100 mg PO BID 01/27/21 01/18/24 History rivaroxaban 20 mg tablet (Xarelto) 20 mg PO QAM 01/27/21 01/18/24 History acyclovir 200 mg capsule 200 mg PO BID 02/15/21 01/18/24 History methotrexate sodium 2.5 mg tablet 15 mg PO WK 02/15/21 01/18/24 History diclofenac sodium 1 % topical gel 4 g topical QID PRN Pain 05/21/22 01/18/24 History naloxone 4 mg/actuation nasal spray 4 mg intranasal DIRECTED PRN 05/21/22 01/18/24 History Other pantoprazole 40 mg tablet,delayed 40 mg PO QAM 05/13/23 01/18/24 History release testosterone (AndroGel) 2 pump topical DAILY #150 grams 08/23/23 01/18/24 Rx fluticasone propionate 50 2 spray intranasal QAM 01/18/24 01/18/24 History mcg/actuation nasal spray,suspension semaglutide (weight loss) 0.5 0.5 mg subcut Q7D 01/18/24 01/18/24 History mg/0.5 mL subcutaneous pen injector Past Med/Surg History Problem List (Updated 01/19/24 @ 08:19 by Khoa Pardo DO) Closed right ankle fracture Closed fibular fracture (Acute) CHI (closed head injury) (Acute) SALLY (acute kidney injury) (Acute) Syncope (Acute) Vocal process granuloma Chronic allergic rhinitis Chronic sinusitis, unspecified Hypertrophy of both inferior nasal turbinates Hypogonadism in male Encounter for pre-operative examination Achilles tendon contracture, left BPH (benign prostatic hyperplasia) GERD (gastroesophageal reflux disease) Hypertension (Chronic) Hyperlipidemia Medical History Hypogonadism in male Hx of colonic polyps Chronic allergic rhinitis Prediabetes Diet control BPH (benign prostatic hyperplasia) Pinched nerve in neck Iron excess Dx 2020, hx multiple phlebotomies History of diverticulitis (2018) sigmoidectomy 2018 Vocal process granuloma Degenerative disc disease, lumbar GERD (gastroesophageal reflux disease) Cervical disc disease "Mild" ROM limitations Atrial fibrillation Taking Xarelto/beta ari Hearing deficit Hearing aids Rheumatoid arthritis on MTX Osteoarthritis Chronic back pain Sleep apnea CPAP (compliant) Hyperlipidemia Hypertension Surgical History Hx of colonoscopy with polypectomy Colonoscopy 11/26/23: MAC at [facility] History of arthroscopy of right shoulder Per records Hx of bilateral cataract extraction History of bilateral knee replacement History of carpal tunnel release of both wrists History of endoscopy History of colon resection x2 Sigmoidectomy - for diverticulitis 2018 History of left shoulder replacement Left TSA (06/10/23): LMA#5 (iGel) + regional at [facility] History of sinus surgery Image guinded B/L ESS 09/12/22: Grade 1 view, MAC#3, ETT 7.5 at [facility] H/O nasal septoplasty History of cardioversion (06/2020) [facility] Status post surgery left bicep tendon repair S/P trigger finger release right middle/ring finger Status post surgery Right ankle surgery S/P ankle joint replacement Left 05/01/2019: Grade 1 view, MAC #3, ETT#8, atraumatic x 1 +PNB Hx of tooth extraction History of metal removed from eye welding injury, most recent 2014 History of appendectomy Family History Father Lung cancer Mother Cervical cancer Family history of diabetes mellitus Other Heart disease Hypertension No family history of adverse response to anesthesia No pertinent family history Social History Smoking Status: Former smoker Second Hand Exposure: No; Do You Dip or Chew Tobacco: No; Hx Alcohol Use: Yes Alcohol type: beer Alcohol Intake Frequency: Monthly or Less Alcohol Intake Frequency Comment: very little Hx Substance Use: No Preferred Language: Vietnamese Communication Ability: Effective Hearing Ability: Hard of Hearing Clinical Staff Rn Required: No Beliefs That Will Affect Care: None marital status: Single Current Living Situation: Alone Feels Safe at Home: Yes Assistive Devices: CPAP, Crutches and Other Review of Systems All systems reviewed & are unremarkable except as noted in HPI & below. Physical Exam On physical exam of the right ankle, I remove the splint. He has tenderness along the medial deltoid region. He has pain across the tibiotalar joint and up the syndesmosis. He then has pain at the fibular fracture.. Constitutional WD/WN, vitals as above Eyes PERRL, conjunctivae normal, anicteric sclerae ENMT external ear and nose normal, oropharynx normal Neck trachea midline, no thyromegaly Respiratory normal respiratory effort Cardiovascular RRR, no murmur, no edema Gastrointestinal (Abdomen) normal bowel sounds, soft, nontender, no hepatosplenomegaly Psychiatric A+Ox3, euthymic affect Results & Data Results & Data Laboratory Results . Diagnostic Findings X-rays of the right ankle do show a midshaft fibular fracture.. PG Care Time/CCT Total # of Minutes Spent Total Time Spent with Patient: Total time spent is greater than 50% in coordination of care (as documented) at patient's floor/unit and/or counseling patient: Coding Level of Care Code 18163 IN/OBS CONSULT LVL 4,60M Diagnoses Closed right ankle fracture S82.891A
[2024-01-19] MEDS: PANTOprazole 40 MG TAB PO SCH (08:45)
[2024-01-19] MEDS: HYDROCODONE/ACETAMINOPHEN 7.5/325MG TAB PO PRN (08:45)
[2024-01-19] MEDS: MoRPHine SULFATE CR 15 MG TABCR PO SCH (08:45)
--- NOTE | 2024-01-19 09:38 | Ultrasound Report ---
ULTRASOUND OF THE CAROTID ARTERIES CLINICAL HISTORY: Syncope. COMPARISON STUDY: No prior TECHNIQUE: Real-time, grayscale, and color Doppler sonography of the carotid arteries is performed. I mages are reviewed in the transverse and longitudinal planes. FINDINGS: The carotid arteries are patent bilaterally and demonstrate antegrade flow. There is mild/moderate at herosclerotic plaque seen in the carotid bulbs. Normal doppler arterial waveforms are seen throughout . Velocity measurements are listed below. Common carotid peak systolic velocity (cm/sec): RIGHT: 65 LEFT: 60 ICA proximal peak systolic velocity (cm/sec): RIGHT: 64 LEFT: 60 ICA mid peak systolic velocity (cm/sec): RIGHT: 35 LEFT: 76 ICA distal peak systolic velocity (cm/sec): RIGHT: 51 LEFT: 46 ICA/CC peak systolic ratio: RIGHT: 1.0 LEFT: 1.3 Antegrade flow was shown in the vertebral arteries. The external carotid arteries are patent. IMPRESSION: 1. There is no sonographic evidence of hemodynamically significant stenosis in the right or left joyner tid arterial system. 2. Antegrade flow is shown in the vertebral arteries. ACT 112: Negative or not required by law. Electronically signed by: Archie Cunha M.D. 01/19/2024 9:37 AM
[2024-01-19] MEDS: CELECOXIB 100 MG CAP PO SCH (10:22)
--- NOTE | 2024-01-19 10:31 | XCELERA ---
[id number]
--- NOTE | 2024-01-19 13:40 | Hospitalist Progress Note ---
Date of Service January 19, 2024 Assessment & Plan (1) Syncope: Plan: Assessment: 1. Syncope. Seems to be probably due to hypovolemia inducing hypotension. However this patient's been having recurrent presyncopal episodes over the last several months. Often related to exertion. He has had a CT of the brain which is negative. Troponin and EKG are unremarkable. Echocardiogram negative. Carotid duplexes are negative as well. Since he started losing weight from starting semaglutide, he probably does not need as many antihypertensives. All antihypertensives on hold including amlodipine and metoprolol. Will monitor blood pressure with antihypertensives on hold. 2. Acute kidney injury due to hypovolemia dehydration. Resolved with hydration 3. Acute right sided fibular fracture, proximal. Orthopedics consulted. Weightbearing as tolerated with Cam walker boot 4. Paroxysmal atrial fibrillation. Resume Xarelto. Will keep metoprolol on hold due to relative hypotension. Patient may need low-dose metoprolol eventually for atrial fibrillation 5. Hypertension. Will hold off on antihypertensives for now given the patient's relative hypotension, including metoprolol and amlodipine. 6. Dyslipidemia continue statin therapy he is on Lipitor 80. 7. Vitamin D deficiency. 8. Rheumatoid arthritis. Currently on methotrexate. 9. Obstructive sleep apnea. Wear CPAP at home. He did not bring his machine with him. We have ordered CPAP protocol. 10. BPH. Continue home treatment. 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 We will continue. Plan: As discussed above. Please refer to orders for further planning. Admission and Anticipated Discharge Date Admission Date: January 18, 2024 Subjective Patient was seen and examined at 9:25 AM. He stated that he was feeling much better overall. He tells me that ever since he started semaglutide, he has lost about 7 pounds of weight. Review of Systems Review of Systems: All systems reviewed & are unremarkable except as noted in Subjective Physical Exam Physical Exam: General: Awake, conversant Heart: S1, S2/regular rate and rhythm, no murmur rubs or gallops Lungs: Clear to auscultation bilaterally. Normal effort Abdomen: Soft/nontender/nondistended. No hepatosplenomegaly Extremities: No clubbing/cyanosis. Right ankle swelling Behavior: Appropriate, cooperative Results & Data Results & Data Vital Signs (Past 12 Hours) Vital Signs Temp Pulse Pulse Resp BP Pulse Ox O2 Del Method 01/19/24 11:15 36.6 C 84 20 101/68 96 Room Air 01/19/24 07:31 36.7 C 83 20 108/68 96 Room Air 01/19/24 03:50 36.4 C L 82 18 109/71 97 CPAP 01/19/24 02:32 76 16 96 PG Care Time/CCT Total # of Minutes Spent Total Time Spent with Patient: Total time spent is greater than 50% in coordination of care (as documented) at patient's floor/unit and/or counseling patient: Coding Level of Care Code 54463 SUB INP/OBS CARE 2/35MIN Diagnoses Syncope R55 Syncope type: unspecified (1) Syncope Syncope type: unspecified Qualified Code(s): R55 - Syncope and collapse
[2024-01-19] MEDS: DOCUSATE SODIUM 100 MG CAP PO SCH (20:45)
[2024-01-19] MEDS: MELATONIN 3 MG TAB PO PRN (20:45)
[2024-01-19] MEDS: SENNA 8.6 MG TAB PO SCH (20:45)
[2024-01-19] MEDS: CALCIUM POLYCARBOPHIL 625MG TAB PO SCH (20:46)
[2024-01-20] MEDS: metHOTREXate sodium 2.5 MG TAB PO SCH (08:40)
[2024-01-20] MEDS: METOPROLOL TARTRATE 25 MG TAB PO SCH (08:47)
--- NOTE | 2024-01-20 08:53 | Orthopedic Progress Note ---
Date of Service January 20, 2024 Assessment & Plan (1) Closed right ankle fracture: Overall he is doing fairly well with the ankle. He can be weightbearing as tolerated on it but I do want him to have a cam walker boot. Hopefully he will get that applied by the recruiter today. He is orthopedically stable for discharge when medically ready. I did call my office and cancel his upcoming shoulder surgery. He can follow-up with orthopedics in 2 to 3 weeks. Full orthopedic discharge instructions were placed in the discharge summary. Ute Petit was seen and examined at bedside this morning. Overall he is doing okay. He is able to ambulate some on the ankle. His blood pressure was a little bit high and he was a little bit tachycardic. They decided to keep him an extra day. He has no other complaints.. Review of Systems All systems reviewed & are unremarkable except as noted in HPI & below. Physical Exam On physical exam of the right ankle, he has an Lefty wrap around his ankle. There is some swelling and ecchymosis. He is awaiting the cam walker boot.. Results & Data Results & Data Laboratory Results . Diagnostic Findings . PG Care Time/CCT Total # of Minutes Spent Total Time Spent with Patient: Total time spent is greater than 50% in coordination of care (as documented) at patient's floor/unit and/or counseling patient: Coding Level of Care Code 83461 SUB INP/OBS CARE 2/35MIN Diagnoses Closed right ankle fracture S82.891A
[2024-01-20] MEDS: METOPROLOL TARTRATE 25 MG TAB PO STA (13:01)
--- NOTE | 2024-01-20 14:48 | Hospitalist Progress Note ---
Date of Service January 20, 2024 Assessment & Plan (1) Syncope: Plan: Assessment: 1. Syncope. Seems to be probably due to hypovolemia inducing hypotension. However this patient's been having recurrent presyncopal episodes over the last several months. Often related to exertion. He has had a CT of the brain which is negative. Troponin and EKG are unremarkable. Echocardiogram negative. Carotid duplexes are negative as well. Since he started losing weight from starting semaglutide, he probably does not need as many antihypertensives. All antihypertensives have been on hold including amlodipine and metoprolol. Blood pressure has been stable off of the blood pressure medications but his heart rate has gone up 2. Acute kidney injury due to hypovolemia dehydration. Resolved with hydration 3. Acute right sided fibular fracture, proximal. Orthopedics consulted. Weightbearing as tolerated with Cam walker boot 4. Paroxysmal atrial fibrillation. Resumed Xarelto. I have been keeping his metoprolol on hold due to his relative hypotension. This morning his heart rate started to go up. I ended up resuming his metoprolol at his usual home dose at 50 twice daily. Will monitor vital signs 5. Hypertension. Will hold off on antihypertensives for now given the patient's relative hypotension. Amlodipine held. Metoprolol resumed due to A- fib RVR 6. Dyslipidemia continue statin therapy he is on Lipitor 80. 7. Vitamin D deficiency. 8. Rheumatoid arthritis. Currently on methotrexate. 9. Obstructive sleep apnea. Wear CPAP at home. He did not bring his machine with him. We have ordered CPAP protocol. 10. BPH. Continue home treatment. 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 We will continue. Likely discharge tomorrow if vitals stable Admission and Anticipated Discharge Date Admission Date: January 18, 2024 Subjective Nurse was concerned that his heart rate went up to the 150s during his when he walked. He remains asymptomatic. His metoprolol was held due to low blood pressure and he has a history of atrial fibrillation taking metoprolol 50 mg twice daily at home. Because of his rapid rate today, I started him on 25 mg of metoprolol. Asked the nurse to recheck vital signs in an hour. If still high, will increase to his usual dose of 50 mg of metoprolol Review of Systems Review of Systems: All systems reviewed & are unremarkable except as noted in Subjective Physical Exam Physical Exam: General: Awake, conversant Heart: S1, S2/rapid rate, irregular rhythm, no murmur rubs or gallops Lungs: Clear to auscultation bilaterally. Normal effort Abdomen: Soft/nontender/nondistended. No hepatosplenomegaly Extremities: No clubbing/cyanosis. Right ankle swelling Behavior: Appropriate, cooperative Results & Data Results & Data Vital Signs (Past 12 Hours) Vital Signs Temp Pulse Pulse Resp BP Pulse Ox O2 Del Method 01/20/24 11:56 172 H 01/20/24 10:41 36.5 C 99 H 99 H 106/77 97 Room Air 01/20/24 07:38 36.7 C 107 H 18 143/92 H 95 Room Air 01/20/24 07:37 83 01/20/24 02:52 36.4 C 81 15 119/81 97 Room Air PG Care Time/CCT Total # of Minutes Spent Total Time Spent with Patient: Total time spent is greater than 50% in coordination of care (as documented) at patient's floor/unit and/or counseling patient: Coding Level of Care Code 21298 SUB INP/OBS CARE 2/35MIN Diagnoses Syncope R55 Syncope type: unspecified (1) Syncope Syncope type: unspecified Qualified Code(s): R55 - Syncope and collapse
[2024-01-20] MEDS: RIVAROXABAN 20 MG TAB PO SCH (17:15)
[2024-01-20] MEDS ORDERED: Nursing to Pharmacy Communication SCH (19:00)
[2024-01-20] MEDS: CELECOXIB 100 MG CAP PO SCH (20:05)
[2024-01-20] MEDS: CALCIUM POLYCARBOPHIL 625MG TAB PO SCH (20:05)
[2024-01-20] MEDS: SENNA 8.6 MG TAB PO SCH (20:06)
[2024-01-20] MEDS: DOCUSATE SODIUM 100 MG CAP PO SCH (20:06)
[2024-01-20] MEDS: METOPROLOL TARTRATE 50 MG TAB PO SCH (20:07)
[2024-01-20] MEDS ORDERED: METOPROLOL TARTRATE 50 MG TAB PO SCH (21:00)
[2024-01-21] MEDS: PANTOprazole 40 MG TAB PO SCH (05:34)
[2024-01-21] MEDS: MoRPHine SULFATE CR 15 MG TABCR PO SCH (05:34)
[2024-01-21 07:41] VITALS: BP 124/83; RESP 15; TEMP 97.5; O2SAT 97
--- NOTE | 2024-01-21 09:27 | Discharge Summary ---
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 He was doing this throughout the day today. He admits to not staying hydrated he hardly had anything to drink all day. Later in the afternoon he went back to his shop he needed if told while walking to the back of his shop he got lightheaded and then he woke up on the ground he thinks he was only out a couple seconds. There was no loss of bowel or bladder cont inence. No tongue bite. His only complaint was left cheek pain and right leg pain. He presented the ER for further evaluation and treatment. On further history taking the patient's been getting near syncopal for the last few months on multiple occasions often related to exertion. He does states he never hydrates though he should. He walked back up to his house after today's syncopal event he took his blood pressure and systolically was only 68. In the emergency department he had a CT of the cervical spine and the head both of which were nonacute. In addition he had a CT of the abdomen pelvis which was nonacute showed diverticulosis with no evidence of diverticulitis. X-ray of the tib-fib showed a proximal right fibula fracture. Patient also had a CT of his face which was negative for acute findings. Laboratory studies in the ER showed acute kidney injury with a creatinine of 1.6 his baseline is approximately 1. His other laboratory studies were unremarkable. Course in the emergency department patient received a liter of IV saline. Initially he was borderline hypotensive at 89/64. Workup of the patient further evaluation and treatment. Consultation was obtained with orthopedics on-call Dr. Pardo via the ER provider. Admission Exam Per Admitting Provider In General: In general very pleasant 73-year-old male who is alert and wanted x 3 at the time of my exam. He has no significant complaints. Fact his only complaints are left cheek pain and right leg pain. HEENT: Normocephalic, he does have ecchymosis on his left cheekbone. No abrasion or laceration. Pupils are equal round and reactive to light bilaterally. No scleral icterus no conjunctival injection external auditory canals are patent septum is in the midline nose is without discharge oral mucosa is pink and moist without lesion. NECK: Supple no rigidity no lymphadenopathy no thyromegaly no carotid bruits no JVD no masses. HEART: Regular rate and rhythm I do not appreciate any ectopy or rub. No murmur. LUNGS: Clear to auscultation bilaterally and anteriorly with no evidence of adventitious sounds/wheezes rales or rhonchi. ABDOMEN: Soft nontender, no rebound, no peritoneal signs, positive bowel sounds, no appreciable organomegaly. EXTREMITIES: Intact, no peripheral cyanosis, clubbing or edema. Neurova scularly lower extremities are intact. He is in a splint of the right lower extremity. NEUROLOGICAL: Cranial nerves II through XII are grossly intact with no focal deficit elicited upon examination. No tremor. Principal Diagnosis Syncope due to hypotension from polypharmacy Acute renal failure due to hypovolemia. Resolved Acute right sided fibular fracture Paroxysmal atrial fibrillation with rapid ventricular response, when metoprolol was held. Metoprolol has since been resumed Discharge Exam General: Awake, conversant Heart: S1, S2/rapid rate, irregular rhythm, no murmur rubs or gallops Lungs: Clear to auscultation bilaterally. Normal effort Abdomen: Soft/nontender/nondistended. No hepatosplenomegaly Extremities: No clubbing/cyanosis. Right ankle swelling Behavior: Appropriate, cooperative Discharge Data Allergies Allergy/AdvReac Type Severity Reaction Status Date / Time doxycycline Allergy Mild Rash Verified 12/18/23 09:45 lisinopril AdvReac Mild Dry cough Verified 12/18/23 09:45 Consultations 01/18/24 18:30 Consult Orthopedic Surgery Routine ED Decision to Admit Stat 01/18/24 19:35 Consult Orthopedic Surgery Routine Ordered Studies 01/18/24 16:54 CT cervical spine wo con Stat CT facial bones wo con Stat CT head/brain wo con Stat 01/18/24 17:18 CT abd pelvis wo con Stat 01/19/24 19:39 US carotid doppler Routine Hospital Course (1) Syncope: Assessment: 1. Syncope. Seems to be probably due to hypovolemia inducing hypotension. However this patient's been having recurrent presyncopal episodes over the last several months. Often related to exertion. He has had a CT of the brain which is negative. Troponin and EKG are unremarkable. Echocardiogram negative. Carotid duplexes are negative as well. Since he started losing weight from starting semaglutide, he probably does not need as many antihypertensives. All antihypertensives were held including amlodipine and metoprolol. Blood pressure has been stable off of the blood pressure medications but his heart rate has gone up. Metoprolol has thus been resumed. 2. Acute kidney injury due to hypovolemia dehydration. Resolved with hydration 3. Acute right sided fibular fracture, proximal. Orthopedics consulted. Weightbearing as tolerated with Cam walker boot. Follow-up with orthopedics 4. Paroxysmal atrial fibrillation. Resumed Xarelto. I had been keeping his metoprolol on hold due to his relative hypotension. Then his heart rate started to go up. I ended up resuming his metoprolol at his usual home dose at 50 twice daily. Vital signs now stable 5. Hypertension. With weight loss related to starting semaglutide, patient probably does not need so many antihypertensives. Amlodipine was discontinued. Metoprolol was initially held but was resumed as his heart rate started to go up. Held terazosin. PCP to decide if the terazosin needs to be resumed 6. Dyslipidemia continue statin therapy he is on Lipitor 80. 7. Vitamin D deficiency. 8. Rheumatoid arthritis. Currently on methotrexate. 9. Obstructive sleep apnea. Wear CPAP at home. 10. BPH. Continue home treatment. 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 We will continue. Discharge to home today Plan Discharge to home Total Time Total Time Spent Total Time Spent (In Minutes): 35 Discharge Plan Discharge Items Patient Disposition: Home - Self-Care Reason For Visit: SYNCOPE, FX FIB Discharge Diagnosis: Syncope due to hypotension from polypharmacy Acute renal failure due to hypovolemia. Resolved Acute right sided fibular fracture Paroxysmal atrial fibrillation with rapid ventricular response, when metoprolol was held. Metoprolol has since been resumed Activity: Resume your previous activity Non-emergency contact: Primary Care Provider Call non-emergency contact if: you have any medication questions and your symptoms worsen Follow-up/Referrals: Rika Coello PA-C [Primary Care Provider] - Diet: Heart Healthy Addtl Attending Provider Instructions: Advised to follow-up with PCP in 1 week Because you lost weight, you probably do not like to be on so many medications for blood pressure. Amlodipine was discontinued. You may need further adjustments of your medications as you continue to lose weight in the future. Addtl Senior Marketing Analyst Provider Instructions: Orthopedic instructions: Weightbearing as tolerated in the cam walker boot You only need to wear the boot when you are ambulating. You do not need the boot when you are resting or in bed. Follow-up with orthopedics in 2 to 3 weeks for follow-up and repeat x-rays. Please call the office to set up an appointment for a time that works for you. [phone] Pending Studies at Discharge: No Stand-Alone Forms: My [facility] Medications and DC Order Prescriptions: Continued testosterone [AndroGel] 20.25 mg/1.25 gram (1.62 %) gel in metered-dose pump 2 pump topical DAILY Qty: 150 3RF Rx Instructions: apply 1 pump amount over max area of each upper arm and shoulder atorvastatin 80 mg Tablet 80 mg PO HS metoprolol tartrate 50 mg Tablet 50 mg PO BID morphine 15 mg Tablet,Oral Only,Ext.Rel.12 Hr 15 mg PO QAM calcium polycarbophil [Fiber Laxative (ca polycarbo)] 625 mg Tablet 625 mg PO BID hydrocodone-acetaminophen 7.5-325 mg Tablet 2 tab PO BID PRN (Reason: Pain) lomzrtohjfk-fjbtorich-teh C-Mn 500-400 mg Capsule 1 cap PO BID potassium chloride 20 mEq Tablet Extended Release 20 meq PO BID Rx Instructions: take w/ food Biofreeze (menthol) 4 % Gel 1 applic TOPICAL UD PRN (Reason: Pain) folic acid 1 mg Tablet 1 mg PO QAM docusate sodium [Stool Softener] 100 mg Tablet 100 mg PO BID cholecalciferol (vitamin D3) [Vitamin D3] 2,000 unit Tablet 2,000 unit PO .ON HOLD sennosides [Senokot] 8.6 mg Tablet 8.6 mg PO BID methotrexate sodium 2.5 mg tablet 15 mg PO WK Patient Comments: saturday Rx Instructions: MONDAYS cyanocobalamin (vitamin B-12) 1,000 mcg Tablet 1,000 mcg PO . ON HOLD acyclovir 200 mg capsule 200 mg PO BID celecoxib [Celebrex] 100 mg Capsule 100 mg PO BID Xarelto 20 mg Tablet 20 mg PO QAM diclofenac sodium 1 % Gel 4 g TOPICAL QID PRN (Reason: Pain) Rx Instructions: apply to single knee, ankle, foot; for foot includes sole/toes/top of foot naloxone 4 mg/actuation Galliano,Non-Aerosol 4 mg INTRANASAL DIRECTED PRN (Reason: Other) Patient Comments: never had to use pantoprazole 40 mg tablet,delayed release (DR/EC) 40 mg PO QAM semaglutide (weight loss) 0.5 mg/0.5 mL Pen Injector 0.5 mg SUBCUT Q7D Rx Instructions: FRIDAYS fluticasone propionate 50 mcg/actuation spray,suspension 2 spray intranasal QAM Rx Instructions: administer into each nostril Held terazosin 10 mg Capsule 10 mg PO HS Hold Instructions: Resume on 02/04/24. Hold until seen by PCP Discontinued amlodipine 10 mg Tablet 10 mg PO QAM Discharge Orders: Discharge Order (Routine); Ordered 01/21/24 Ordered By: Musa Nevarez Admission Data Admit Date/Time: 01/18/24 19:36 Attending Provider: Musa Nevarez Admit Provider: Carlos Arguello Primary Care Provider: Rika Coello Other Providers: Khoa Pardo; Carlos Arguello; [facility] Other Interventions: Discharge Summary Assessment (RN) Last Done: 01/21/24 09:51
[2024-01-21 09:55] VITALS: PULSE 74
--- NOTE | 2024-01-21 23:13 | Electrocardiogram Report ---
Test Reason : Blood Pressure : */* mmHG Vent. Rate : 89 BPM Atrial Rate : * BPM P-R Int : * ms QRS Dur : 102 ms QT Int : 354 ms P-R-T Axes : * 76 68 degrees QTcB Int : 430 ms Atrial fibrillation Abnormal ECG When compared with ECG of 31-Dec-2023 14:37, No significant change was found Confirmed by Basil Juan ([id number]) on 01/21/2024 11:12:44 PM Referred By: REFERRED SELF Confirmed By: Basil Juan
== END 2024-01-21 12:50 | disposition home or self-care (01) | DRG 312 ==
LOC: ED 16:25 → SUATTDRO 19:36 → 4W 19:36